=== PATIENT | female | born 1985 | race Caucasian/White ===

== ENCOUNTER 2020-12-09 12:46 | Outpatient (CLI) | payer OTHER, SELFPAY ==
--- NOTE | 2020-12-09 12:58 | XR_ITS ---
WS: [id number] ANKLE RIGHT TECHNIQUE: 3 views of the right ankle CLINICAL INFORMATION: PIN IN RIGHT ANKLE AND JOINTS OF RIGHT FOOT COMPARISON: None. FINDINGS: Moderate diffuse soft tissue edema. Normal ankle mortise. Normal medial and lateral malleolus. No acu te fractures. Tiny ossicle or chronic tiny avulsion adjacent to the medial malleolus. This appears we ll-corticated. XR/XR ankle RT min 3V* [id number] IMPRESSION: 1. Moderate diffuse soft tissue edema. No acute fractures. 2. Tiny bony fragment adjacent to the medial malleolus likely chronic.
== END 2020-12-09 12:47 | disposition home or self-care (01) ==
LOC: RADWPI 12:57
PROVIDERS: PCP Nurse Practitioner Family; Visit Provider Nurse Practitioner Family
DX: M25.571 Pain in right ankle and joints of right foot (principal); M25.471 Effusion, right ankle; R60.0 Localized edema
CPT/HCPCS: 73610

== ENCOUNTER 2021-01-07 07:33 | Emergency (ER) | payer OTHER, SELFPAY ==
[2021-01-07 07:36] VITALS: BP 151/106; PULSE 107; RESP 18; TEMP 36.5; O2SAT 91; BMI 55.2
[2021-01-07 07:44] VITALS: BP 151/106; PULSE 91; RESP 18; O2SAT 89
--- NOTE | 2021-01-07 07:46 | XR_ITS ---
WS: [id number] Portable AP upright chest, 01/07/2021 Clinical Data: dyspnea/cough Comparison: Portable chest, 09/04/2019. Findings: No nodules, masses or effusions are seen. The heart is normal. The pulmonary vascularity is not increased. No pneumonia or pneumothorax is seen. XR/XR chest 1V portable [id number] Impression: Negative chest.
--- NOTE | 2021-01-07 07:56 | US_ITS ---
WS: [id number] RIGHT UPPER QUADRANT ULTRASOUND HISTORY: RUQ abd pain COMPARISON: 03/15/2016 Liver: 22.4 cm in length. Markedly enlarged liver is incompletely visualized due to body habitus. Sev ere hepatic steatosis and fibrosis throughout the liver. No bile duct dilatation or mass. Gallbladder: Normally distended gallbladder with no stones or wall thickening. CBD: Not visualized. Pancreas: Poorly visualized. Right kidney: 12.7 cm in length. Normal size and echogenicity. No hydronephrosis or mass. Aorta and IVC: Unremarkable abdominal aorta and IVC. No ascites. US/US gall bladder [id number] IMPRESSION: 1. Very limited evaluation of the RIGHT upper quadrant due to body habitus. 2. Marked hepatomegaly and hepatic steatosis. 3. Negative gallbladder.
--- NOTE | 2021-01-07 07:57 | W.ED.ABDPA2 ---
HPI - Abdominal Pain General: Chief Complaint: Abdominal Pain Stated Complaint: AB PAIN, COUGH, NAUSEA Time Seen by Provider: 01/07/21 07:36 History of Present Illness: HPI narrative: 35-year-old female presents emergency room with a complaint of right upper quadrant abdominal pain that is worsened by eating. She was seen earlier this week by her primary care doctor to schedule some testing she is not really able to complete it yet.. When she ate last night she had worsening right upper quadrant abdominal pain radiating into her back accompanied by acholic stools and severe nausea. She denies any hematochezia or melena denies any hematemesis. Stools have become very loose when she has these episodes as well. Episodes have been increasing in intensity and frequency associated with eating. She denies dysuria urgency or frequency, she states she does have a cough but it is at her normal baseline that she relates to her history of smoking. MD elicited complaint: abdominal pain Onset (ago): week(s) Pain Consistency: intermittent Location: RUQ Severity: severe Quality: cramping Radiation: back Exacerbating factors: eating Associated Symptoms: Reports anorexia, bloating, change in bowel habits, change in stool character, GI cramping, dyspepsia, loose stools and poor appetite; Denies belching, chills, coffee ground emesis, constipation, dysuria, excessive flatus, fever(s), heartburn, hematochezia, hematuria, hematemesis, fecal incontinence, melena, nausea, syncope and vomiting Review of Systems Const: Denies: fever(s) or chills ENMT: Denies: throat pain, ear or mastoid pain, nasal discharge or nasal congestion Card: Denies: syncope Resp: Denies: dyspnea, productive cough or non-productive cough GI: Reports: bloating, GI cramping, change in bowel habits and change in stool character; Denies: nausea, vomiting, hematemesis, coffee ground emesis, heartburn, constipation, belching, excessive flatus, fecal incontinence, hematochezia or melena : Denies: dysuria or hematuria Skin/Breast: Denies: rash or pruritus Physical Exam Const: COMMON NORMALS: no acute distress GENERAL APPEARANCE: cooperative and comfortable ORIENTATION/CONSCIOUSNESS: Yes awake, Yes oriented to person, Yes oriented to place and Yes oriented to time HENMT: COMMON NORMALS: normocephalic, atraumatic and hearing grossly normal bilaterally HEAD & SCALP: normocephalic and atraumatic Neck/C-Spine: COMMON NORMALS: no JVD Resp: COMMON NORMALS: normal respiratory effort, No retractions, No use of accessory muscles and clear to auscultation bilaterally AUSCULTATION: clear to auscultation bilaterally Cardio: COMMON NORMALS: no JVD, regular rate, regular rhythm and No murmurs present (Cardio) RATE: regular rate RHYTHM: regular rhythm GI: COMMON NORMALS: Soft to palpation and No hepatosplenomegaly present AUSCULTATION: Yes normoactive bowel sounds PALPATION: Yes Soft to palpation, No Tenderness to palpation present (GI), No Guarding due to palpation present (GI) and Yes No hepatosplenomegaly present Extremity: COMMON NORMALS: normal to inspection, capillary refill normal, no clubbing, cyanosis or edema, no calf tenderness and no pedal edema Neuro: SENSORIUM/ORIENTATION: Yes oriented to person, Yes oriented to place and Yes oriented to time Skin: COMMON NORMALS: no rashes or lesions noted GENERAL SKIN EXAM: no rashes or lesions noted Course Vital Signs: Vital signs: Vital Signs Temperature 97.7 F 01/07/21 07:36 Pulse Rate 72 01/07/21 08:43 Respiratory Rate 18 01/07/21 08:43 Blood Pressure 176/106 01/07/21 08:43 Pulse Oximetry 93 01/07/21 08:49 MDM - Abdominal Pain MDM Narrative: Medical decision making narrative: Labs and imaging reviewed. There is no sign of acute cholecystitis either on imaging or the labs. We are to go ahead and discharge her home I doubt this try hydrocodone bland diet. We will set up for an outpatient HIDA scan and referral to general surgery if HIDA scan is negative she may still require an EGD. Discussed dietary suggestions with her as well return if has further problems. Lab Data: Labs: Lab Results 01/07/21 01/07/21 01/07/21 Range/Units 08:10 08:10 08:54 WBC 13.2 H (4.0-10.0) 10^3/ uL RBC 4.89 (4.1-5.3) 10^6/u L Hgb 14.6 (11.5-15.3) g/dL Hct 45.3 (37.0-47.0) % MCV 92.6 (81-99) fL MCH 29.9 (28.0-34.0) pg MCHC 32.2 (30.0-36.0) g/dL RDW 12.8 (12.1-15.1) % Plt Count 349 (130-400) 10^3/c mm MPV 9.6 (7.4-10.4) fL Neut % (Auto) 76.4 % Lymph % (Auto) 14.6 % Summers % (Auto) 3.6 % Eos % (Auto) 2.7 % Baso % (Auto) 0.5 % Neut # (Auto) 10.08 H (1.8-7.7) 10^3/u L Lymph # (Auto) 1.9 (0.8-4.8) 10^3/u L Summers # (Auto) 0.5 (0.2-0.9) 10^3/u L Eos # (Auto) 0.4 (0.0-0.8) 10^3/u L Baso # (Auto) 0.1 (0.0-0.1) 10^3/u L Nucleated RBC % (a uto) 0 % Nucleated RBCs # 0.0 /100WBC Specimen Type Arterial Sample Site Radial, left ABG pH 7.43 (7.35-7.45) ABG pCO2 38.8 (35-45) mmHg ABG pO2 72.6 L (80.0-100.0) mmH g ABG HCO3 25.7 (22-26) mmol/L ABG O2 Saturation 96.8 ABG Base Excess 1.4 (-2.0-2.0) mmol/ L Ramiro Test Pos A-a O2 Gradient 3.9 L (5-10) mmHg Hematocrit 46.6 (37-47) % Hgb O2 Saturation 89.7 L (95-100) % Carboxyhemoglobin 6.4 (0.4-20.1) %THgb Methemoglobin 0.9 (0.4-1.5) % Total Hemoglobin 15.2 (12-16) g/dL Ionized Calcium 1.1 (1.1-1.4) mmol/L O2 Delivery Device Room air FiO2 21.0 % Sow Farm Barn Technician ID glc Sodium 135 L 139.0 (136-145) mmol/L Potassium 4.1 4.1 (3.5-5.1) mmol/L Chloride 101 (98-107) mmol/L Carbon Dioxide 24 (22-29) mmol/L Anion Gap 14.1 (5-19) BUN 8 (6-20) mg/dL Creatinine 0.6 (0.5-0.9) mg/dL GFR Calculation 114.4 (90-130) mL/min Glucose 198 H 171.0 H (65-115) mg/dL Calculated Osmolal ity 284 L (285-295) mOsm/k g Calcium 8.5 (8.5-10.5) mg/dL Total Bilirubin 0.4 (0.15-1.2) mg/dL AST 30 (0-32) U/L ALT 47 H (0-33) U/L Alkaline Phosphata se 105 (35-105) IU/L Total Protein 7.2 (6.6-8.7) g/dL Albumin 4.0 (3.5-5.2) g/dL Globulin 3.2 (1.3-4.6) g/dL Lipase 40 (13-60) U/L Urine Color (Yellow) Urine Appearance (CLEAR) Urine pH (5-7) Ur Specific Gravit y (1.005-1.030) Urine Protein (Negative) Urine Glucose (UA) (Normal) Urine Ketones (Negative) Urine Blood (Negative) Urine Nitrate (Negative) Urine Bilirubin (Negative) Urine Urobilinogen (Negative) mg/dL Ur Leukocyte Estephania ase (Negative) 01/07/21 Range/Units 09:00 WBC (4.0-10.0) 10^3/ uL RBC (4.1-5.3) 10^6/u L Hgb (11.5-15.3) g/dL Hct (37.0-47.0) % MCV (81-99) fL MCH (28.0-34.0) pg MCHC (30.0-36.0) g/dL RDW (12.1-15.1) % Plt Count (130-400) 10^3/c mm MPV (7.4-10.4) fL Neut % (Auto) % Lymph % (Auto) % Summers % (Auto) % Eos % (Auto) % Baso % (Auto) % Neut # (Auto) (1.8-7.7) 10^3/u L Lymph # (Auto) (0.8-4.8) 10^3/u L Summers # (Auto) (0.2-0.9) 10^3/u L Eos # (Auto) (0.0-0.8) 10^3/u L Baso # (Auto) (0.0-0.1) 10^3/u L Nucleated RBC % (a uto) % Nucleated RBCs # /100WBC Specimen Type Sample Site ABG pH (7.35-7.45) ABG pCO2 (35-45) mmHg ABG pO2 (80.0-100.0) mmH g ABG HCO3 (22-26) mmol/L ABG O2 Saturation ABG Base Excess (-2.0-2.0) mmol/ L Ramiro Test A-a O2 Gradient (5-10) mmHg Hematocrit (37-47) % Hgb O2 Saturation (95-100) % Carboxyhemoglobin (0.4-20.1) %THgb Methemoglobin (0.4-1.5) % Total Hemoglobin (12-16) g/dL Ionized Calcium (1.1-1.4) mmol/L O2 Delivery Device FiO2 % Sow [employer] Technician ID Sodium (136-145) mmol/L Potassium (3.5-5.1) mmol/L Chloride (98-107) mmol/L Carbon Dioxide (22-29) mmol/L Anion Gap (5-19) BUN (6-20) mg/dL Creatinine (0.5-0.9) mg/dL GFR Calculation (90-130) mL/min Glucose (65-115) mg/dL Calculated Osmolal ity (285-295) mOsm/k g Calcium (8.5-10.5) mg/dL Total Bilirubin (0.15-1.2) mg/dL AST (0-32) U/L ALT (0-33) U/L Alkaline Phosphata se (35-105) IU/L Total Protein (6.6-8.7) g/dL Albumin (3.5-5.2) g/dL Globulin (1.3-4.6) g/dL Lipase (13-60) U/L Urine Color Straw (Yellow) Urine Appearance Clear (CLEAR) Urine pH 5 (5-7) Ur Specific Gravit y 1.010 (1.005-1.030) Urine Protein Neg (Negative) Urine Glucose (UA) Norm (Normal) Urine Ketones Negative (Negative) Urine Blood Neg (Negative) Urine Nitrate Negative (Negative) Urine Bilirubin Neg (Negative) Urine Urobilinogen Norm (Negative) mg/dL Ur Leukocyte Estephania ase Negative (Negative) Discharge Plan Discharge Patient Disposition: Home Clinical Impression: Biliary colic Condition: Stable Prescriptions: New hydrocodone-acetaminophen 5-325 mg tablet 1 tab PO Q6H PRN (Reason: pain) Qty: 15 RF: 0 Zofran 4 mg tablet 4 mg PO Q6H PRN (Reason: nausea and vomiting) Qty: 20 RF: 0 No Action cyclobenzaprine 10 mg tablet 10 mg PO BEDTIME PRN (Reason: Spasms) RF: 0 metformin 500 mg tablet 500 mg PO BID RF: 0 Advair Diskus 250-50 mcg/dose blister with device 1 ea inhalation BID PRN (Reason: Shortness Of Breath) RF: 0 albuterol sulfate 2.5 mg /3 mL (0.083 %) solution for nebulization 2.5 mg inhalation Q6H PRN (Reason: Shortness Of Breath) RF: 0 cetirizine 10 mg Tablet 10 mg PO DAILY@07 RF: 0 ondansetron HCl 4 mg tablet 4 mg PO Q6H PRN (Reason: Nausea) RF: 0 sertraline 100 mg tablet 100 mg PO DAILY@07 RF: 0 ciprofloxacin HCl 500 mg tablet 500 mg PO BID RF: 0 pantoprazole 40 mg tablet,delayed release (DR/EC) 40 mg PO DAILY@07 RF: 0 albuterol sulfate 90 mcg/actuation HFA aerosol inhaler 2 puff INHALATION Q4H PRN (Reason: Shortness Of Breath) RF: 0 hydroxyzine HCl 10 mg tablet 10 - 20 mg PO QID PRN (Reason: Anxiety) RF: 0 lisinopril 2.5 mg tablet 2.5 mg PO DAILY@07 RF: 0 Fish Oil 1,000 mg (120 mg-180 mg) Capsule 1 cap PO DAILY@07 RF: 0 Discharge Orders: Discharge ED (Routine); Ordered 01/07/21 Ordered By: Naseem Campoverde Referrals: Florence Gray FNP [Primary Care Provider] - Patient Instructions: Biliary Colic (ED), Opioid Safety Coding Level of Care Code ED Tipple Repairer for Chg Fwd Exam Comprehensive
[2021-01-07 08:20] LABS: Basophils # 0.1 10^3/uL (0.0-0.1); Basophils % 0.5 %; Eosinophils # 0.4 10^3/uL (0.0-0.8); Eosinophils % 2.7 %; Hematocrit 45.3 % (37.0-47.0); Hemoglobin 14.6 g/dL (11.5-15.3); Lymphocytes # 1.9 10^3/uL (0.8-4.8); Lymphocytes % 14.6 %; Mean Corpuscular HGB Conc 32.2 g/dL (30.0-36.0); Mean Corpuscular Hemoglobin 29.9 pg (28.0-34.0); Mean Corpuscular Volume 92.6 fL (81-99); Mean Platelet Volume 9.6 fL (7.4-10.4); Monocytes # 0.5 10^3/uL (0.2-0.9); Monocytes % 3.6 %; Neutrophils # 10.08 10^3/uL (1.8-7.7); Neutrophils % 76.4 %; Nucleated Red Blood Cells % 0 %; Platelet Count 349 10^3/cmm (130-400); Red Blood Count 4.89 10^6/uL (4.1-5.3); Red Cell Distribution Width 12.8 % (12.1-15.1); White Blood Count 13.2 10^3/uL (4.0-10.0)
[2021-01-07 08:35] LABS: Alanine Aminotransferase 47 U/L (0-33); Alkaline Phosphatase 105 IU/L (35-105); Anion Gap 14.1 (5-19); Aspartate Amino Transferase 30 U/L (0-32); Blood Urea Nitrogen 8 mg/dL (6-20); Calcium 8.5 mg/dL (8.5-10.5); Carbon Dioxide 24 mmol/L (22-29); Chloride 101 mmol/L (98-107); Globulin 3.2 g/dL (1.3-4.6); Glomerular Filtration Rate 114.4 mL/min (90-130); Glucose 198 mg/dL (65-115); Lipase 40 U/L (13-60); Osmolality Calculated 284 mOsm/kg (285-295); Potassium 4.1 mmol/L (3.5-5.1); Sodium 135 mmol/L (136-145); Total Bilirubin 0.4 mg/dL (0.15-1.2); Total Protein 7.2 g/dL (6.6-8.7)
--- NOTE | 2021-01-07 08:42 | CT_ITS ---
WS: [id number] CT ABDOMEN AND PELVIS WITH CONTRAST HISTORY: abd pain, RIGHT lower quadrant and chest pain. TECHNIQUE: Imaging performed of the abdomen and pelvis with IV contrast. Single phase imaging of the abdomen. Coronal and sagittal reformats are submitted. All CT scans at use at least one of these dose optimization techniques: automated exposure control; mA and/or kV adjustment per patient size (includes targeted exams where dose is matched to clinical indication); or iterativ e reconstruction. IV CONTRAST: Omnipaque 300; 95 mL IV. Oral contrast: No DLP: 1999.08 mGy.cm COMPARISON: 09/04/2019 Lower thorax: Lung bases are clear. Heart is normal size. No hiatal hernia. Liver/biliary system: Marked hepatomegaly and hepatic steatosis. Severe low attenuation throughout th e liver. No focal mass identified. Normal portal vein and bile ducts. Gallbladder: Normal. No gallstones or wall thickening. No pericholecystic fluid. Pancreas: Normal. Spleen: Normal. Adrenal glands: Normal. Right kidney: Normal. Left kidney: Normal. Aorta: Normal. Lymphadenopathy: None. Free fluid: No free fluid within the abdomen or pelvis. There is soft tissue anasarca along the later al abdominal wall musculature. GI tract: Prior appendectomy. No GI tract obstruction. No mucosal thickening. Abdominal wall: Unremarkable abdominal wall. No hernia. Pelvis: Prior hysterectomy. RIGHT ovary is still present and small caliber. Bones: Advanced degenerative disc disease at L4-5 with bilateral pars defects at L4. Additional pars defects at L3. Bilateral transverse process fractures at L1 versus unfused apophyses. CT/CT abdomen pelvis w con* [id number] IMPRESSION: 1. Severe hepatomegaly and hepatic steatosis. 2. Prior appendectomy and hysterectomy. 3. No GI tract obstruction. No acute abdominal process. 4. Bilateral pars defects at L4 and L3
[2021-01-07 08:43] VITALS: BP 176/106; PULSE 72; RESP 18; O2SAT 92
[2021-01-07 08:49] VITALS: O2SAT 93
[2021-01-07 09:04] LABS: ABG PCO2 38.8 mmHg (35-45); ABG PH Result 7.43 (7.35-7.45); Alveolar-Arterial Oxygen Gradi 3.9 mmHg (5-10); Arterial Blood Gas Hematocrit 46.6 % (37-47); Base Excess ABG 1.4 mmol/L (-2.0-2.0); Blood Gas Allen Test Pos; Blood Gas Operator Identificat glc; Blood Gas Sample Site Radial, left; Blood Gas Sample Type Arterial; Carboxyhemoglobin 6.4 %THgb (0.4-20.1); HCO3 ABG 25.7 mmol/L (22-26); HGB O2 Sat 89.7 % (95-100); Ionized Calcium Level - ABG 1.1 mmol/L (1.1-1.4); Methemoglobin 0.9 % (0.4-1.5); Oxygen Device ROOM AIR; Oxygen Saturation ABG 96.8; PO2 ABG 72.6 mmHg (80.0-100.0); Potassium Level - ABG 4.1 mmol/L (3.5-5.0); Total Hemoglobin 15.2 g/dL (12-16)
[2021-01-07 09:06] LABS: Add Urine Microscopic? NO
[2021-01-07] MEDS: iohexol 300 mg/mL 100 mL Btl IV (09:15)
[2021-01-07 09:16] LABS: Bilirubin Urine Neg (Negative); Blood Urine Neg (Negative); Glucose Urine UA Norm (Normal); Ketones Urine Negative (Negative); Leukocyte Esterase Urine Negative (Negative); Nitrate Urine Negative (Negative); Protein Urine Neg (Negative); Urine Appearance Clear (CLEAR); Urine Color Straw (Yellow); Urobilinogen Urine Norm (Negative); pH Urine 5 (5-7)
[2021-01-07 10:00] VITALS: BP 138/84; PULSE 78; RESP 15; O2SAT 96
--- NOTE | 2021-01-07 15:08 | DCPLANNER ---
seed corn production manager had message to schedule an out patient HIDA scan and a referral to general surgery. seed corn production manager emailed patients information to both Geeta and Karina at [facility] General Surgery. Patients information will be printed and reviewed. Clinic will call patient with appointment information. seed corn production manager faxed signed order to centralized scheduling, will call for appointment information.
--- NOTE | 2021-01-11 07:44 | DCPLANNER ---
Patient has a follow up appointment scheduled for Monday, January 11, 2021 at 3;[address] Kirkpatrick at [facility] General Surgery. Clinic will call patient with appointment information.
--- NOTE | 2021-01-20 09:15 | DCPLANNER ---
Addendum entered by Kathleen Condon 02/23/22 12:25: Patient had a follow up appointment scheduled for 02[facility]06.22 with [facility] - patient did attend appointment. Original Note: Patient had a follow up appointment scheduled for 01.18.21 for a HIDA Scan - patient did attend appointment. Patient had a follow up appointment scheduled for 01.11.[address] Kirkpatrick at [facility] General Surgery - patient did attend appointment.
== END 2021-01-07 10:01 | disposition home or self-care (01) ==
PROVIDERS: Emergency Provider Family Medicine; PCP Nurse Practitioner Family
DX: K80.50 Calculus of bile duct without cholangitis or cholecystitis without obstruction (principal)
CPT/HCPCS: 36415; 36600; 71045; 74177; 76705; 80051; 80053; 81003; 82330; 82805; 83690; 85025; 87040; 99283; Q9967

== ENCOUNTER 2021-01-18 07:31 | Outpatient (CLI) | payer OTHER, SELFPAY ==
--- NOTE | 2021-01-18 07:37 | NM_ITS ---
WS: [id number] NUCLEAR MEDICINE HIDA SCAN CLINICAL INFORMATION: BILIARY COLIC TECHNIQUE: Following intravenous administration of 7.9 mCi of technetium 99m mebrofenin, images of th e abdomen were obtained over the course of 60 minutes. Next, gallbladder ejection fraction was determ ined by obtaining preprandial and one-hour postprandial images of the gallbladder following oral joey stion of Ensure. FINDINGS: Hepatomegaly. Hepatic uptake at 5 minutes. Gallbladder is visualized by 15 minutes. No evidence of ac lea cholecystitis. Normal common bile duct and small bowel activity. No evidence of choledocholithias is. Gallbladder ejection fraction 77% within normal limits. No evidence of chronic cholecystitis. NM/NM hepatobiliary w phar* [id number] IMPRESSION: 1. No evidence of acute or chronic cholecystitis. 2. Gallbladder ejection fraction 77% within normal limits.
== END 2021-01-18 07:32 | disposition home or self-care (01) ==
LOC: RAD 07:35
PROVIDERS: PCP Nurse Practitioner Family; Visit Provider Family Medicine
DX: K80.50 Calculus of bile duct without cholangitis or cholecystitis without obstruction (principal)
CPT/HCPCS: 78227; A9537

== ENCOUNTER → 2021-01-26 16:02 | Outpatient (BNVA) | payer OTHER, SELFPAY | PROVIDERS: PCP Nurse Practitioner Family; Visit Provider Family Medicine | DX: Z20.828 Contact with and (suspected) exposure to other viral communicable diseases (principal) | CPT/HCPCS: 87635 ==

== ENCOUNTER 2021-02-01 10:27 | Outpatient (CLI) | payer OTHER, SELFPAY ==
--- NOTE | 2021-02-01 13:30 | PFTS_ITS ---
Date of Study:02/01/21 Date of Dictation: 02/01/2021 MECHANICS: Postbronchodilator forced vital capacity (FVC) is normal. Postbronchodilator forced expiratory volume in one second (FEV1) is normal. FEV1/FVC is normal. There is significant response to bronchodilators. FLOW VOLUME LOOP: Normal . LUNG VOLUMES: Not measured DIFFUSING CAPACITY FOR CARBON MONOXIDE: Not measured . INTERPRETATION: The spirometry is normal. There is significant response to bronchodilators. Please correlate clinically. MTDD
== END 2021-02-01 10:28 | disposition home or self-care (01) ==
LOC: RT 10:32
PROVIDERS: PCP Nurse Practitioner Family; Visit Provider Family Medicine
DX: R06.2 Wheezing (principal)
CPT/HCPCS: 94060; J7611

== ENCOUNTER → 2021-02-09 11:53 | Outpatient (BNVA) | payer OTHER, SELFPAY | PROVIDERS: PCP Nurse Practitioner Family; Visit Provider Surgery | DX: K21.9 Gastro-esophageal reflux disease without esophagitis (principal); R10.11 Right upper quadrant pain | CPT/HCPCS: 87635 ==

== ENCOUNTER 2021-02-14 12:12 | Day surgery (SDC) | payer OTHER, SELFPAY ==
[2021-02-11 14:56] VITALS: BMI 54.8
[2021-02-14] VITALS (11 sets, daily range): BP systolic 126–159; BP diastolic 78–89; PULSE 59–84; RESP 12–18; TEMP 36.4–36.6; O2SAT 90–97
[2021-02-14 12:58] LABS: Glucose Point of Care 158 mg/dL (70-110)
--- NOTE | 2021-02-14 13:56 | P.ANESASSM_ITS ---
Pre-Anesthetic Assessment Pre-Anesthetic Assessment: Height/Weight: Height 1.68 m Weight 154.221 kg Temp Pulse Resp BP Pulse Ox 97.5 F L 66 18 159/89 97 02/14/21 12:42 02/14/21 12:42 02/14/21 12:42 02/14/21 12:42 02/14/21 12:42 Preop Diagnosis: Chronic cholecystitis, GERD Proposed Procedure: Operation Date: 02/14/21 13:55 Proposed Procedures p EGD [id number] K21.9 R10.11(Not Applicable) - Reymundo Kirkpatrick MD s Laparoscopic Cholecystectomy(Not Applicable) - Reymundo Kirkpatrick MD Was Beta Edmond taken within 24 hours: N/A Was Clonidine taken within 24 hours: N/A Last intake: Intake Last Liquid Date 02/13/21 Last Solid Date 02/13/21 Social: Social History: Tobacco and No alcohol Exam: Pre-Anes Outpt Exam: alert, oriented x 3, clear to auscultation bilaterally and regular rate & rhythm Airway: Submandibular: WNL Cervical ROM: WNL MP: 1 Pulmonary: Pulmonary: Asthma CV/HEM: CV/HEM: HTN : : None reported Hepatic: Hepatic: None reported GI: GI: GERD Metabolic: Metabolic: DM and Morbid obesity Musc/skel: Musc/skel: None reported Neuropsych: Neuropsych: Depression Anesthetic Plan: ASA status: 3 Anesthesia: General PFSH Anesthesia PFSH: Medical History (Updated 01/28/21 @ 10:45 by Reymundo Kirkpatrick MD) Depression Diabetes GERD (gastroesophageal reflux disease) Seasonal allergies Surgical History History of esophagogastroduodenoscopy (EGD) History of laparoscopic [place]ectomy [place] [place] myringotomy with insertion of tube S/P partial hysterectomy Family History Denies family history of Anesthesia complication Bleeding disorder Data Anesthesia Other Labs: Laboratory Results - last 48 hr 02/14/21 12:53 POC Glucose 158 H Cardiac Studies: No Data to Display
--- NOTE | 2021-02-14 15:16 | W.PM.OPSUD ---
Surgery/Procedure H&P Update DATE OF PROCEDURE: February 14, 2021 DATE H&P PERFORMED: 01/28/21 H&P UPDATE INFORMATION: I have reviewed H&P completed within last 30 days, I have examined patient prior to procedure and No changes to prior documentation PREOP DIAGNOSIS: Chronic cholecystitis, GERD PLANNED PROCEDURE: Operation Date: 02/14/21 13:55 Proposed Procedures p EGD [id number] K21.9 R10.11(Not Applicable) - Reymundo Kirkpatrick MD s Laparoscopic Cholecystectomy(Not Applicable) - Reymundo Kirkpatrick MD
--- NOTE | 2021-02-14 17:44 | PM.OP ---
Operative Report Date of procedure: February 14, 2021 Pre-op Diagnosis: Chronic cholecystitis, GERD Post-op Diagnosis: 1. Normal EGD 2. Chronic cholecystitis Procedure Done: 1. Esophagogastroduodenoscopy without biopsy 2. Laparoscopic cholecystectomy Specimens removed/disposition: Gallbladder Surgeon: Reymundo Kirkpatrick Anesthesia: General Condition: stable Disposition: PACU Procedure: The patient was taken to the operating room and was intubated under general anesthesia. A bite-block was placed and a gastroscope was introduced and advanced up to the second part of duodenum and slowly withdrawn. Duodenum second portion: Normal Duodenal bulb: Normal Stomach Fundus: Normal body: Normal Antrum: Normal Pylorus: Normal Esophagus GE junction: Normal at 40 cm Rest of esophagus: Normal After the antibiotic had been administered, the abdomen was prepped and draped in a sterile manner. Using a #15 blade, a 1 centimeter infraumbilical curvilinear incision was made and using an open Tejal technique the peritoneal cavity was entered. A 10 millimeter port was placed and 15 millimeters of pneumoperitoneum was created. A 10 millimeter, 30 degrees scope was then introduced. Three 5 millimeter ports were placed in the epigastric, midclavicular and the anterior axillary line two fingerbreadths below the costal margin on the right side under the direct visualization. Ratcheted forceps were introduced into the lateral most port and was used to retract the fundus of the gallbladder cephalad and using forceps the infundibulum of the gallbladder was retracted laterally. Using L-hook cautery the peritoneum overlying the Calot's triangle was opened medially and laterally until the cystic duct and the cystic artery were skeletonized. Dissection was carried along the body of the gallbladder and after ensuring critical view of safety, 4 clips applied on the cystic duct and 3 clips applied on the cystic artery and cut leaving, 3 clips on the remaining portion of the duct and 2 clips on the remaining portion of the artery. The rest of the gallbladder was dissected off the liver using L-hook cautery. There was no bleeding or bile leaking noted from the gallbladder fossa and the clips appeared to be in place. An EndoCatch bag was introduced to remove the gallbladder. All the ports were removed under direct visualization and there was no bleeding noted from the port sites. The fascia of the umbilicus was closed using [id number] 0 Vicryl sutures and the subcutaneous tissue was approximated using 3-0 Vicryl sutures. The skin at all four ports were closed using 4-0 Monocryl and Dermabond. A total of 10 millimeters of 0.5% Marcaine was infiltrated around the port sites. The patient was stable throughout the procedure.
--- NOTE | 2021-02-14 17:54 | P.PCN_ITS ---
PACU note PACU note: VSS, Good respiratory effort, report to CATERPILLAR TRACTOR OPERATOR Post-Anesthesia Exam: awake
--- NOTE | 2021-02-14 17:54 | PM.PACU ---
PACU note PACU note: VSS, Good respiratory effort, report to INFUSION PHARMACIST Post-Anesthesia Exam: awake
[2021-02-14] MEDS: ondansetron 2 mg/ML SDV 2 mL 4 MG IVP ×4 (17:56→19:28)
[2021-02-14] MEDS: sodium chloride 0.9% 1,000 ML 30 ML IV (18:20)
--- NOTE | 2021-02-14 18:21 | ANE.PACU2 ---
Inpatient post-anesthesia follow up: Airway intact: Yes Vital signs: Temperature 97.8 F Pulse Rate 71 Respiratory Rate 14 Blood Pressure 128/82 Pulse Oximetry 94 Oxygen Delivery Me thod Room Air Oxygen Flow Rate 8 Fraction of Inspir ed Oxygen Hydration adequate: Yes Nausea and vomiting: Yes Pain level: 3 Mental status: Baseline
[2021-02-14] MEDS: morphine 4 mg/mL SDV 1 mL IVP ×2 (18:38→18:43)
[2021-02-14] MEDS: HYDROcodone-acetaminophen 5-325 mg Tablet 1 TAB PO (19:12)
== END 2021-02-14 19:52 | disposition home or self-care (01) ==
PROVIDERS: PCP Nurse Practitioner Family; Visit Provider Surgery
PROC: 0DJ08ZZ Inspection of Upper Intestinal Tract, Via Natural or Artificial Opening Endoscopic (ICD-10-PCS; CPT 43235; principal; 2021-02-14 13:45)
PROC: 0FT44ZZ Resection of Gallbladder, Percutaneous Endoscopic Approach (ICD-10-PCS; CPT 47562; 2021-02-14 13:45)
DX: K81.1 Chronic cholecystitis (principal); K21.9 Gastro-esophageal reflux disease without esophagitis; I10 Essential (primary) hypertension; E11.9 Type 2 diabetes mellitus without complications; E66.01 Morbid (severe) obesity due to excess calories; Z68.43 Body mass index [BMI] 50.0-59.9, adult; F32.9 Major depressive disorder, single episode, unspecified
CPT/HCPCS: 43235; 47562; 36416; 82962; 88304; 96374; 96375; J0330; J0690; J2270; J2405; J2704; J2710; J3010; J3490; J7030

== ENCOUNTER 2021-03-18 13:38 | Outpatient (CLI) | payer OTHER, SELFPAY ==
--- NOTE | 2021-03-18 13:51 | XR_ITS ---
WS: [id number] Right wrist, 3 views, 03/18/2021 Clinical Data: TRIGGER FINGER OF THUMB/R WRIST PAIN Comparison: None. Findings: No fractures or dislocations are seen. The carpal bones are intact. There is no soft tissue swelling. The distal radius and ulna are not remarkable. XR/XR wrist RT min 3V* [id number] Impression: Negative right wrist.
== END 2021-03-18 13:39 | disposition home or self-care (01) ==
LOC: RAD 13:44
PROVIDERS: PCP Nurse Practitioner Family; Visit Provider Nurse Practitioner Family
DX: M25.531 Pain in right wrist (principal); M65.311 Trigger thumb, right thumb
CPT/HCPCS: 73110

== ENCOUNTER 2021-04-05 14:52 | Outpatient (CLI) | payer OTHER, SELFPAY | END 2021-04-05 14:53 | disposition home or self-care (01) | LOC: SPT 14:53 | PROVIDERS: PCP Nurse Practitioner Family; Visit Provider Orthopaedic Surgery | DX: Z46.89 Encounter for fitting and adjustment of other specified devices (principal); M65.4 Radial styloid tenosynovitis [de Quervain] | CPT/HCPCS: L3809 ==

== ENCOUNTER 2021-06-08 08:37 | Outpatient (CLI) | payer OTHER, SELFPAY ==
--- NOTE | 2021-06-08 08:42 | CT_ITS ---
WS: [id number] CT CHEST TECHNIQUE: Contrast enhanced CT of the chest with coronal and sagittal reformatted images. CLINICAL INFORMATION: ABNORMAL RADIOLOGIC FINDINGS OF LUNG FIELD COMPARISON: CTA 10 31,019 DLP: 1163.[address] scans at [facility] use at least one of these dose optimization techniques: automat ed exposure control; mA and/or kV adjustment per patient size (includes targeted exams where dose is matched to clinical indication); or iterative reconstruction. FINDINGS: Both lungs are well aerated. No acute pulmonary infiltrates. No focal pneumonia or pleural fluid. No suspicious pulmonary parenchymal opacities. No mediastinal or hilar lymphadenopathy. Normal caliber thoracic aorta. Proximal main pulmonary arter ies are normal. No axillary lymphadenopathy. Hepatomegaly. Diffuse fatty infiltration of the liver. Cholecystectomy clips. Adrenal glands are norm al. CT/CT chest w con* [id number] IMPRESSION: 1. Both lungs are well aerated. No suspicious pulmonary parenchymal opacities. 2. No focal pneumonia or pleural fluid. 3. No mediastinal or hilar lymphadenopathy. 4. Hepatomegaly with diffuse fatty infiltration. 5. Cholecystectomy clips.
[2021-06-08] MEDS: iohexol 300 mg/mL 100 mL Btl IV (08:59)
== END 2021-06-08 08:38 | disposition home or self-care (01) ==
PROVIDERS: PCP Nurse Practitioner Family; Visit Provider Nurse Practitioner Family
DX: R91.8 Other nonspecific abnormal finding of lung field (principal); Z90.49 Acquired absence of other specified parts of digestive tract; R16.0 Hepatomegaly, not elsewhere classified; K76.0 Fatty (change of) liver, not elsewhere classified
CPT/HCPCS: 71260; Q9967

== ENCOUNTER 2021-06-16 11:22 | Outpatient (CLI) | payer OTHER, SELFPAY ==
--- NOTE | 2021-06-16 11:29 | XR_ITS ---
WS: [id number] Lumbar spine, 3 views, 06/16/2021 Clinical Data: LOW BACK PAIN/SCIATICA LEFT SIDE Comparison: None. Findings: No compression fractures or subluxation is seen. There is degenerative disc narrowing at L4-L5. Anter ior osteoarthritic spurring is present from L1 through L5. The transverse processes and SI joints are normal. There are clips in the right upper quadrant from a cholecystectomy. XR/XR lumbar spine 2-3V* [id number] Impression: 1. Degenerative disc narrowing at L4-L5. 2. Mild osteoarthritis of L1-L5.
== END 2021-06-16 11:23 | disposition home or self-care (01) ==
PROVIDERS: PCP Nurse Practitioner Family; Visit Provider Nurse Practitioner Family
DX: M54.5 Low back pain (principal); M54.32 Sciatica, left side; M47.816 Spondylosis without myelopathy or radiculopathy, lumbar region
CPT/HCPCS: 72100

== ENCOUNTER 2021-12-26 11:37 | Outpatient (CLI) | payer OTHER, SELFPAY ==
--- NOTE | 2021-12-26 11:54 | XR_ITS ---
WS: [id number] Exam: XR KUB [id number] Date/Time of Exam: 12/26/2021 11:54 AM Reason For Exam: ABD PAIN Comparison 10/17/2016. No bowel obstruction or free air. Signs of prior cholecystectomy. No sign of organ enlargement. Bony structures are intact. Multiple pelvic calcifications most likely phleboliths. XR/XR KUB [id number] IMPRESSION: 1. No acute abdominal process noted.
== END 2021-12-26 11:38 | disposition home or self-care (01) ==
PROVIDERS: PCP Nurse Practitioner Family; Visit Provider Nurse Practitioner Family
DX: R10.9 Unspecified abdominal pain (principal)
CPT/HCPCS: 74018

== ENCOUNTER 2021-12-29 07:56 | Outpatient (CLI) | payer OTHER, SELFPAY ==
--- NOTE | 2021-12-29 07:59 | CT_ITS ---
WS: [id number] CT ABDOMEN AND PELVIS NONCONTRAST HISTORY: RIGHT flank pain and RIGHT lower quadrant pain. TECHNIQUE: Imaging performed through the abdomen and pelvis. Coronal and sagittal reformats are submi tted. All CT scans at [facility] use at least one of these dose optimization techniques: auto mated exposure control; mA and/or kV adjustment per patient size (includes targeted exams where dose is matched to clinical indication); or iterative reconstruction. DLP: 2108.96 mGy.cm COMPARISON: 01/07/2021 Lower thorax: Lung bases are clear. Visualized heart is normal. No hiatal hernia. Liver: Marked hepatomegaly and severe low attenuation from hepatic steatosis. No bile duct dilatation is evident. Gallbladder: Prior cholecystectomy. Pancreas: Normal size and attenuation. Normal pancreatic duct. No pancreatitis or mass. Spleen: Normal. Adrenal glands: Normal. No mass. Right kidney: Normal size kidney with no mass or hydronephrosis. Left kidney: Normal size kidney with no mass or hydronephrosis. Aorta: Minimal atherosclerotic plaque. No free fluid, intraperitoneal air or significant lymphadenopathy. GI tract: Prior appendectomy. Nondistended stomach as no oral contrast was provided. No small bowel o bstruction. No colonic obstruction. Abdominal wall: Negative. No hernia. Pelvis: Status post hysterectomy. Urinary bladder is nondistended and is being displaced anteriorly a nd compressed by a cystic mass in the central pelvis with adjacent soft tissue which is probably ovar edith tissue. Mass measures 7.7 x 7.6 x 7.3 cm. RIGHT ovary was identified on the prior study. No adjac ent inflammation or free fluid. There are several phleboliths in the pelvis. Small bilateral inguinal lymph nodes. Osseous structures: Severe degenerative disc disease at L4-5 with L4 anterolisthesis by 4 mm. Bilater al pars defects at L4. Otherwise suspicious there are probably pars defects also at the L3 level. CT/CT kidney stone [id number] IMPRESSION: 1. No renal mass or calcification. No ureteral obstruction. 2. Status post appendectomy and hysterectomy. 3. Status post cholecystectomy. 4. New soft tissue mass in the central pelvis of decreased attenuation. Probab ly associated with the RIGHT ovary. Mass measures 7.7 x 7.6 cm and extends over a length of 7.3 cm. This mass was not present on 01/07/2021. Differential includ es ovarian cystic mass, benign or malignant. Ovarian torsion within the differe ntial but thought less likely as there is no adjacent free fluid or inflammatio n or severe pain. Recommend follow-up transvaginal pelvic ultrasound to further evaluate. 5. Marked hepatomegaly and hepatic steatosis.
== END 2021-12-29 07:57 | disposition home or self-care (01) ==
LOC: RAD 07:57
PROVIDERS: PCP Nurse Practitioner Family; Visit Provider Nurse Practitioner Family
DX: Z90.49 Acquired absence of other specified parts of digestive tract; N20.0 Calculus of kidney; Q42.8 Congenital absence, atresia and stenosis of other parts of large intestine; Z90.710 Acquired absence of both cervix and uterus; R16.0 Hepatomegaly, not elsewhere classified; K76.0 Fatty (change of) liver, not elsewhere classified
CPT/HCPCS: 74176

== ENCOUNTER 2022-01-19 09:31 | Inpatient (IN) | payer OTHER, SELFPAY ==
[2022-01-19 09:39] VITALS: BP 146/92; PULSE 74; RESP 16; TEMP 36.3; O2SAT 100; BMI 51.6
--- NOTE | 2022-01-19 09:43 | USR_ITS ---
PROCEDURE INFORMATION: Exam: US Pelvis, Transvaginal Exam date and time: 01/19/2022 10:34 AM Age: 36 years old Clinical indication: Pelvic pain; Prior surgery; Surgery date: 6+ months; Surgery type: Hysterectomy; Additional info: Suspected twisted ovary, per Dr. Bhakta TECHNIQUE: Imaging protocol: Real-time transvaginal pelvic ultrasound with image documentation. Transvaginal imaging was used for better evaluation of the endometrium, adnexa, and/or cervix. COMPARISON: CT kidney stone [id number] 12/29/2021 8:41 AM FINDINGS: Uterus: Status post hysterectomy. Right ovary/adnexa: Normal ovarian blood flow. There is a complex septated cyst 7.5 cm x 8.8 cm x 8.4 cm. A 2nd complex septated cyst 11 mm x 11.7 mm x 9.5 mm. The right ovary measures 8.2 cm x 10.1 cm x 12.5 cm. Left ovary/adnexa: Is not visualized. Intraperitoneal space: Moderate volume free fluid collection is seen in the right adnexa are oval US/US transvaginal [id number] IMPRESSION: 1. Complex septated cyst right ovary. 2. Small septated cyst right ovary. 3. Normal vascular flow right ovary. 4. Status post hysterectomy. 5. Left ovary is not visible. 6. Moderate volume free fluid collection right adnexa
--- NOTE | 2022-01-19 09:50 | W.ED.GENADLT ---
HPI - General Adult General: Chief complaint: Abdominal Pain Stated complaint: ABD pain; pos ovary twist Time Seen by Provider: 01/19/22 09:42 History of Present Illness: Patient complains about the right lower quadrant pain since yesterday. Patient says she has a history of a mass possible ovarian cyst there. Patient was seen by Dr. Rowe in our office today and sent here for further evaluation. Patient said pain got really bad yesterday evening she went to the ER in [place] they did a CT to look for stone did not see a stone she said that the mass was still present about 9 cm x 9 cm. Patient denies any hematuria, vaginal discharge, nausea vomiting, and fever. Associated symptoms: Deny chest pain, dyspnea, headache(s), nausea, rash or vomiting Review of Systems Const: Denies: fever(s), chills or body aches Eyes: Denies: eye discomfort ENMT: Denies: throat pain Card: Denies: chest pain Resp: Denies: dyspnea GI: Denies: abdominal pain, nausea or vomiting : Reports: other (Right lower pelvic area pain) Skin/Breast: Denies: rash Neuro: Denies: headache(s) Psych: Denies: depression or suicidal ideation PFSH ED PFSH: Medical History Depression Diabetes GERD (gastroesophageal reflux disease) Seasonal allergies Surgical History History of esophagogastroduodenoscopy (EGD) (02/14/21) History of laparoscopic [place] [facility] [place] my[place]otomy with insertion of tube S/P partial hysterectomy Status post laparoscopic cholecystectomy (02/14/21) Family History (Updated 01/19/22 @ 08:56 by Lizzie Longoria LPN) Father CAD (coronary artery disease) Diabetes Hyperlipidemia Hypertension Denies family history of Clotting disorder Chronic kidney disease (CKD) Anesthesia complication Bleeding disorder Cancer Thyroid disease Stroke Physical Exam Const: COMMON NORMALS: no acute distress, patient oriented x3 and alert HENMT: COMMON NORMALS: normocephalic and external ears normal HEAD & SCALP: normocephalic EXTERNAL EAR: Yes external ears normal Eye: COMMON NORMALS: EOMs intact bilaterally Neck/C-Spine: COMMON NORMALS: no JVD Resp: COMMON NORMALS: normal respiratory effort and No use of accessory muscles Cardio: COMMON NORMALS: no JVD GI: INSPECTION: Yes normal to inspection : OTHER: Tenderness right lower pelvis Extremity: COMMON NORMALS: normal to inspection and full ROM Neuro: COMMON NORMALS: patient oriented x3 SENSORIUM/ORIENTATION: Yes alert Psych: COMMON NORMALS: mental status grossly normal Skin: COMMON NORMALS: no rashes or lesions noted GENERAL SKIN EXAM: no rashes or lesions noted Course Vital Signs: Vital signs: Vital Signs Temperature 97.3 F L 01/19/22 09:39 Pulse Rate 74 01/19/22 09:39 Respiratory Rate 16 01/19/22 09:39 Blood Pressure 146/92 01/19/22 09:39 Pulse Oximetry 100 01/19/22 09:39 [facility] - General Adult Medical Decision Making Laboratories and radiology studies were evaluated. Patient has complex septated cyst on the right ovary also has leukocytosis. Patient pain is not been able to control to morphine. I spoke with Dr. Cadena and Dr. Kuo and patient will be admitted to the hospital via Dr. Cadena he has to go ahead and treat for PID with antibiotic coverage and pain control. Lab Data : 01/19/22 10:10 01/19/22 10:10 Radiology Impressions Transvaginal US 01/19/22 09:43 IMPRESSION: 1. Complex septated cyst right ovary. 2. Small septated cyst right ovary. 3. Normal vascular flow right ovary. 4. Status post hysterectomy. 5. Left ovary is not visible. 6. Moderate volume free fluid collection right adnexa Laboratory Results WBC 21.7 10^3/uL (4.0-10.0) H 01/19/22 10:10 RBC 4.55 10^6/uL (4.1-5.3) 01/19/22 10:10 Hgb 13.9 g/dL (11.5-15.3) 01/19/22 10:10 Hct 42.0 % (37.0-47.0) 01/19/22 10:10 MCV 92.3 fl (81-99) 01/19/22 10:10 MCH 30.5 pg (28.0-34.0) 01/19/22 10:10 MCHC 33.1 g/dL (30.0-36.0) 01/19/22 10:10 RDW 13.1 % (12.1-15.1) 01/19/22 10:10 Plt Count 379 10^3/cmm (130-400) 01/19/22 10:10 MPV 9.8 fL (7.4-10.4) 01/19/22 10:10 Neut % (Auto) 78.2 % 01/19/22 10:10 Lymph % (Auto) 14.3 % 01/19/22 10:10 Fergus % (Auto) 4.1 % 01/19/22 10:10 Eos % (Auto) 1.3 % 01/19/22 10:10 Baso % (Auto) 0.5 % 01/19/22 10:10 Neut # (Auto) 16.95 10^3/uL (1.8-7.7) H 01/19/22 10:10 Lymph # (Auto) 3.1 10^3/uL (0.8-4.8) 01/19/22 10:10 Fergus # (Auto) 0.9 10^3/uL (0.2-0.9) 01/19/22 10:10 Eos # (Auto) 0.3 10^3/uL (0.0-0.8) 01/19/22 10:10 Baso # (Auto) 0.1 10^3/uL (0.0-0.1) 01/19/22 10:10 Nucleated RBC % (auto) 0 % 01/19/22 10:10 Nucleated RBCs # 0.0 /100WBC 01/19/22 10:10 PT 13.80 SECONDS (12.1-14.9) 01/19/22 10:10 INR 1.03 (0.8-1.2) 01/19/22 10:10 Sodium 133 mmol/L (136-145) L 01/19/22 10:10 Potassium 4.1 mmol/L (3.5-5.1) 01/19/22 10:10 Chloride 97 mmol/L (98-107) L 01/19/22 10:10 Carbon Dioxide 22 mmol/L (22-29) 01/19/22 10:10 Anion Gap 18.1 (5-19) 01/19/22 10:10 BUN 11 mg/dL (6-20) 01/19/22 10:10 Creatinine 0.6 mg/dL (0.5-0.9) 01/19/22 10:10 GFR Calculation 113.8 mL/min (90-130) 01/19/22 10:10 Glucose 164 mg/dL (65-115) H 01/19/22 10:10 Calculated Osmolality 279 mOsm/kg (285-295) L 01/19/22 10:10 Calcium 9.6 mg/dL (8.5-10.5) 01/19/22 10:10 Lipase 28 U/L (13-60) 01/19/22 10:10 Urine Color Kary (Yellow) 01/19/22 Unknown Urine Appearance Clear (CLEAR) 01/19/22 Unknown Urine pH 6 (5-7) 01/19/22 Unknown Ur Specific Logan 1.010 (1.005-1.030) 01/19/22 Unknown Urine Protein Trace (Negative) 01/19/22 Unknown Urine Glucose (UA) Norm (Normal) 01/19/22 Unknown Urine Ketones Negative (Negative) 01/19/22 Unknown Urine Blood Neg (Negative) 01/19/22 Unknown Urine Nitrate Negative (Negative) 01/19/22 Unknown Urine Bilirubin 1+ (Negative) H 01/19/22 Unknown Urine Urobilinogen 1 mg/dL (Negative) H 01/19/22 Unknown Ur Leukocyte Esterase Negative (Negative) 01/19/22 Unknown Urine RBC Rare /hpf (0-2) 01/19/22 Unknown Urine WBC None /hpf (0-5) 01/19/22 Unknown Ur Squamous Epith Cells Rare /hpf (0-5) 01/19/22 Unknown Amorphous Sediment Not Reportable 01/19/22 Unknown Urine Bacteria Trace /hpf (NONE) 01/19/22 Unknown Urine Mucus Trace /hpf 01/19/22 Unknown Discharge Plan Discharge Patient Disposition: Admitted As Inpatient Clinical Impression: Ovarian cyst Condition: Stable Coding Level of Care Code ED Nursery Worker for Chg Fwd Exam Comprehensive
[2022-01-19] MEDS: ondansetron 2 mg/ML SDV 2 mL 4 MG IVP ×2 (10:17→14:49)
[2022-01-19] MEDS: morphine 4 mg/mL SDV 1 mL IVP ×2 (10:18→12:21)
[2022-01-19] MEDS: sodium chloride 0.9% 1,000 ML 150 ML IV ×2 (10:19→14:48)
[2022-01-19 10:21] LABS: Basophils # 0.1 10^3/uL (0.0-0.1); Basophils % 0.5 %; Eosinophils # 0.3 10^3/uL (0.0-0.8); Eosinophils % 1.3 %; Hemoglobin 13.9 g/dL (11.5-15.3); Lymphocytes # 3.1 10^3/uL (0.8-4.8); Lymphocytes % 14.3 %; Mean Corpuscular HGB Conc 33.1 g/dL (30.0-36.0); Mean Corpuscular Hemoglobin 30.5 pg (28.0-34.0); Mean Corpuscular Volume 92.3 fl (81-99); Mean Platelet Volume 9.8 fL (7.4-10.4); Monocytes # 0.9 10^3/uL (0.2-0.9); Monocytes % 4.1 %; Neutrophils # 16.95 10^3/uL (1.8-7.7); Neutrophils % 78.2 %; Nucleated Red Blood Cells % 0 %; Platelet Count 379 10^3/cmm (130-400); Red Blood Count 4.55 10^6/uL (4.1-5.3); Red Cell Distribution Width 13.1 % (12.1-15.1); White Blood Count 21.7 10^3/uL (4.0-10.0)
[2022-01-19 10:40] LABS: INR 1.03 (0.8-1.2)
[2022-01-19 10:41] LABS: Anion Gap 18.1 (5-19); Blood Urea Nitrogen 11 mg/dL (6-20); Calcium 9.6 mg/dL (8.5-10.5); Carbon Dioxide 22 mmol/L (22-29); Chloride 97 mmol/L (98-107); Glomerular Filtration Rate 113.8 mL/min (90-130); Glucose 164 mg/dL (65-115); Osmolality Calculated 279 mOsm/kg (285-295); Potassium 4.1 mmol/L (3.5-5.1); Sodium 133 mmol/L (136-145)
[2022-01-19 12:15] LABS: Lipase 28 U/L (13-60)
[2022-01-19 12:34] LABS: Add Urine Microscopic? YES; Bilirubin Urine 1+ (Negative); Blood Urine Neg (Negative); Glucose Urine UA Norm (Normal); Ketones Urine Negative (Negative); Leukocyte Esterase Urine Negative (Negative); Nitrate Urine Negative (Negative); Protein Urine Trace (Negative); Urine Appearance Clear (CLEAR); Urine Color Amber (Yellow); Urobilinogen Urine 1 mg/dL (Negative); pH Urine 6 (5-7)
[2022-01-19 12:35] LABS: Add Urine Culture? No; Bacteria Urine TRACE /hpf; Mucus Urine TRACE /hpf; RBC Urine RARE /hpf (0-2); Squamous Epithelial Cell Urine RARE /hpf (0-5)
[2022-01-19 13:22] LABS: CA 125 4.9 U/mL (0-35)
[2022-01-19] MEDS: HYDROmorphone 1 mg/mL INJ 1 mL IVP (13:31)
[2022-01-19 14:15] VITALS: BMI 51.6
--- NOTE | 2022-01-19 14:33 | DCPLANNER ---
Addendum entered by Kathleen Condon 01/25/22 09:25: Patient has a follow up appointment scheduled for Sunday, February 06, 2022 at 2;[address] Cadena. Clinic will call patient with appointment information. Original Note: clinical product manager had message to schedule a follow up appointment for patient with [facility]. clinical product manager called the [facility], spoke with [employer], gave clinic patients information. clinical product manager was told that patients information would be printed and reviewed. Clinic will call patient with appointment information.
[2022-01-19] MEDS: HYDROcodone-acetaminophen 5-325 mg Tablet PO ×3 (14:49→23:21)
[2022-01-19] MEDS: metroNIDAZOLE IV 500 MG/100 ML PREMIX 100 MG IV ×2 (14:49→23:13)
[2022-01-19] MEDS: ceFOXitin 2,000 MG in sodium chloride 0.9% (plus) 50 ML 100 MG IV ×2 (16:13→21:12)
[2022-01-19] MEDS: doxycycline 100 MG in sodium chloride 0.9% (plus) 100 ML IV (16:59)
--- NOTE | 2022-01-19 18:47 | PM.OBGYHP ---
Providers/Chief Complaint Admitting Physician: Daniel Cadena MD Primary Care Provider: SAMANTHA Sullivan Chief Complaint: ABD pain; pos ovary twist HPI SPEECH LANGUAGE PATHOLOGIST ASSISTANT History of Present Illness Prerna Dalton is a 36 year old female G0, P0, came to the clinic after referral from a CT scan ordered due to possible kidney stones showing in mid pelvis mass but she had the with chief complaint of right pelvic pain. She was advised to go to the emergency room for further evaluation for possible ovarian torsion. In the emergency room after evaluation and ultrasound shows a complex adnexal mass, associated with a white count of 21,000. Review of Systems Const: Denies: fever(s), chills or body aches Eyes: Denies: eye discomfort ENMT: Denies: throat pain Card: Denies: chest pain Resp: Denies: dyspnea GI: Denies: abdominal pain, nausea or vomiting : Reports: other (Right lower pelvic area pain) Skin/Breast: Denies: rash Neuro: Denies: headache(s) Psych: Denies: depression or suicidal ideation Medications/Allergies Home Medications Medication Instructions Recorded Confirmed Last Taken Type albuterol sulfate 2.5 mg INHALATION Q6H PRN 01/07/21 01/19/22 Unknown History albuterol sulfate 90 mcg/actuation 2 puff INHALATION Q4H PRN 01/07/21 01/19/22 02/09/21 History aerosol inhaler cetirizine 10 mg tablet 10 mg PO QAM 01/07/21 01/19/22 02/12/21 History cyclobenzaprine 10 mg tablet 10 mg PO BEDTIME PRN 01/07/21 01/19/22 02/10/21 History fluticasone 250 mcg-salmeterol 50 1 ea INHALATION BID PRN 01/07/21 01/19/22 Unknown History mcg/dose blistr powdr for inhalation (Advair Diskus) pantoprazole 40 mg tablet,delayed 40 mg PO QAM 01/07/21 01/19/22 01/17/22 History release (Protonix) sertraline 100 mg tablet 100 mg PO QAM 01/07/21 01/19/22 01/17/22 History hydrochlorothiazide 25 mg tablet 25 mg PO QAM 01/19/22 01/19/22 01/17/22 History hydrocodone 5 mg-acetaminophen 325 1 tab PO TID PRN #14 tab 01/19/22 Unknown Rx mg tablet lisinopril 20 mg tablet 20 mg PO QAM 01/19/22 01/19/22 01/17/22 History metformin 1,000 mg tablet 1,000 mg PO BID 01/19/22 01/19/22 01/17/22 History multivitamin 1 tab PO BEDTIME 01/19/22 01/19/22 Unknown History naproxen 500 mg tablet (Naprosyn) 500 mg PO BID PRN #20 tab 01/19/22 Unknown Rx rosuvastatin 10 mg tablet 10 mg PO BEDTIME 01/19/22 01/19/22 01/17/22 History Allergies Allergy/AdvReac Type Severity Reaction Status Date / Time No Known Allergies Allergy Verified 01/19/22 13:07 PFS SPEECH LANGUAGE PATHOLOGIST ASSISTANT PFSH: Medical History (Updated 01/20/22 @ 06:51 by Daniel Cadena MD) Depression Diabetes GERD (gastroesophageal reflux disease) Seasonal allergies Surgical History (Updated 01/19/22 @ 15:51 by Nori Navarro RN) History of esophagogastroduodenoscopy (EGD) (02/14/21) [facility] [place]/P myringotomy with insertion of tube S/P partial hysterectomy Status post laparoscopic cholecystectomy (02/14/21) Family History (Updated 01/19/22 @ 08:56 by Lizzie Longoria LPN) Father CAD (coronary artery disease) Diabetes Hyperlipidemia Hypertension Denies family history of Clotting disorder Chronic kidney disease (CKD) Anesthesia complication Bleeding disorder Cancer Thyroid disease Stroke Personal Safety: Do you feel safe at home: No Victim of physical abuse: No Victim of emotional abuse: No Victim of sexual abuse: No Would you like help information on resources?: No History History History 0 Term Miscarriages/Ectopic Living Children Vitals/I&O/Wt Last Vital Signs Temp 97.3 F L 01/19/22 09:39 Pulse 83 01/20/22 04:17 Resp 14 01/20/22 04:17 BP 127/79 01/20/22 04:17 Pulse Ox 93 01/20/22 04:17 01/19/22 01/19/22 01/20/22 14:59 22:59 06:59 Intake Total 672.5 / 672.5 2300 / 2972.5 250 / 3222.5 Balance 672.5 / 672.5 2300 / 2972.5 250 / 3222.5 Weight last 48 hrs Weight 145.15 kg Weight 145.15 kg Physical Exam Const: COMMON NORMALS: no acute distress, average body habitus and patient oriented x3 GENERAL APPEARANCE: cooperative and well kempt HENMT: COMMON NORMALS: normocephalic and atraumatic HEAD & SCALP: normocephalic and atraumatic Neck/C-Spine: COMMON NORMALS: full ROM Chest: COMMONS NORMALS: normal inspection of the chest Resp: COMMON NORMALS: normal respiratory effort Cardio: COMMON NORMALS: regular rate and regular rhythm RATE: regular rate RHYTHM: regular rhythm GI: INSPECTION: Yes normal to inspection Neuro: COMMON NORMALS: patient oriented x3 Psych: APPEARANCE: Yes well kempt Data : 01/19/22 10:10 01/19/22 10:10 Results METAL MOULDER'S ASSISTANT Ultrasound [address] [address] Ultrasound Report Signed Patient: Prerna Dalton Unit #: [id number] : 1985 Age/Sex: 36 / F ADM Date: 01/19/22 Loc: ER Room/Bed: Attending Dr: Ordering Provider/Ordering MD: Michael Lovett , [facility] Date of Service: 01/19/22 Procedure(s): US transvaginal [id number] Accession Number(s): [id number] Report Number: [id number] PROCEDURE INFORMATION: Exam: US Pelvis, Transvaginal Exam date and time: 01/19/2022 10:34 AM Age: 36 years old Clinical indication: Pelvic pain; Prior surgery; Surgery date: 6+ months; Surgery type: Hysterectomy; Additional info: Suspected twisted ovary, per Dr. Bhakta TECHNIQUE: Imaging protocol: Real-time transvaginal pelvic ultrasound with image documentation. Transvaginal imaging was used for better evaluation of the endometrium, adnexa, and/or cervix. COMPARISON: CT kidney stone [id number] 12/29/2021 8:41 AM FINDINGS: Uterus:? Status post hysterectomy. Right ovary/adnexa: Normal ovarian blood flow.? There is a complex septated cyst 7.5 cm x 8.8 cm x 8.4 cm.? A 2nd complex septated cyst 11 mm x 11.7 mm x 9.5 mm. ? The right ovary measures 8.2 cm x 10.1 cm x 12.5 cm. Left ovary/adnexa:? Is not visualized. ? Intraperitoneal space:? Moderate volume free fluid collection is seen in the right adnexa are oval US/US transvaginal [id number] IMPRESSION: 1. Complex septated cyst right ovary. 2. Small septated cyst right ovary. 3.? Normal vascular flow right ovary. 4. Status post hysterectomy. 5. Left ovary is not visible. 6. Moderate volume free fluid collection right adnexa? A&P Assessment and plan (1) Right tubo-ovarian mass: Mrs. Dalton 36-year-old female G0, P0 status post hysterectomy. Was sent to the emergency room with suspicion of possible ovarian torsion. Ultrasound shows normal blood flow to the ovary. Her white count is 21,000, will treat with IV therapy and observe. Status: Acute Plan IV antibiotic therapy. Attestations Medical Necessity Statement*: In my professional opinion per admitting diagnosis Coding Level of Care Code Acute Artillery Officer for polly Fwd Exam Detailed Diagnoses Right tubo-ovarian mass N83.8
[2022-01-19] MEDS: zolpidem 5 mg Tablet 10 MG PO (21:13)
[2022-01-19 21:28] VITALS: BP 118/71; PULSE 72; RESP 14; O2SAT 96
[2022-01-20] MEDS: ceFOXitin 2,000 MG in sodium chloride 0.9% (plus) 50 ML 100 MG IV ×4 (03:05→21:04)
[2022-01-20] MEDS: sodium chloride 0.9% 1,000 ML 150 ML IV (03:31)
[2022-01-20] MEDS: HYDROcodone-acetaminophen 5-325 mg Tablet PO ×5 (03:31→23:02)
[2022-01-20] MEDS: doxycycline 100 MG in sodium chloride 0.9% (plus) 100 ML IV ×2 (03:44→14:39)
[2022-01-20 04:17] VITALS: BP 127/79; PULSE 83; RESP 14; O2SAT 93
[2022-01-20] MEDS: metroNIDAZOLE IV 500 MG/100 ML PREMIX 100 MG IV ×3 (07:14→23:03)
[2022-01-20 07:30] VITALS: BP 102/62; PULSE 75; RESP 18; TEMP 36.8
[2022-01-20 10:57] LABS: Basophils # 0.1 10^3/uL (0.0-0.1); Basophils % 0.4 %; Eosinophils # 0.4 10^3/uL (0.0-0.8); Eosinophils % 2.1 %; Hematocrit 36.9 % (37.0-47.0); Hemoglobin 12.2 g/dL (11.5-15.3); Lymphocytes % 15.3 %; Mean Corpuscular HGB Conc 33.1 g/dL (30.0-36.0); Mean Corpuscular Hemoglobin 31.3 pg (28.0-34.0); Mean Corpuscular Volume 94.6 fl (81-99); Mean Platelet Volume 9.7 fL (7.4-10.4); Monocytes # 1.1 10^3/uL (0.2-0.9); Monocytes % 5.6 %; Neutrophils # 14.74 10^3/uL (1.8-7.7); Neutrophils % 75.3 %; Nucleated Red Blood Cells % 0 %; Platelet Count 321 10^3/cmm (130-400); Red Cell Distribution Width 13.4 % (12.1-15.1); White Blood Count 19.6 10^3/uL (4.0-10.0)
[2022-01-20 11:28] LABS: Add Urine Culture? No; Bacteria Urine TRACE /hpf; Bilirubin Urine 1+ (Negative); Blood Urine Neg (Negative); Glucose Urine UA Norm (Normal); Ketones Urine 1+ (Negative); Leukocyte Esterase Urine Negative (Negative); Mucus Urine 4+ /hpf; Nitrate Urine Negative (Negative); Protein Urine Trace (Negative); RBC Urine RARE /hpf (0-2); Squamous Epithelial Cell Urine RARE /hpf (0-5); Urine Appearance Clear (CLEAR); Urine Color Yellow (Yellow); Urobilinogen Urine 1 mg/dL (Negative); WBC Urine 0-4 /hpf (0-5); pH Urine 5 (5-7)
[2022-01-20 13:47] VITALS: BP 145/92; PULSE 72; RESP 18; TEMP 36.8
[2022-01-20] MEDS: lisinopril 20 mg Tablet PO (15:45)
--- NOTE | 2022-01-20 15:58 | PC.NURSE ---
0710 IV WAS LEAKING PRIOR TO MY SHIFT AND GAYATRI HAD TRIED ONCE WELL ADELINE CASTANO. THIS RF TEST TECHNICIAN GOT IV IN RIGHT HAND WITH #18 FRANK.
[2022-01-20 21:12] VITALS: BP 128/72; PULSE 86; RESP 16; O2SAT 95
[2022-01-20] MEDS: nicotine 21 mg Patch 1 PATCH TRANSDERMA (21:26)
[2022-01-20] MEDS: zolpidem 5 mg Tablet 10 MG PO (21:26)
[2022-01-21] VITALS (12 sets, daily range): BP systolic 109–147; BP diastolic 63–93; PULSE 60–101; RESP 14–22; TEMP 36.4–37.2; O2SAT 91–97
[2022-01-21] MEDS: ceFOXitin 2,000 MG in sodium chloride 0.9% (plus) 50 ML 100 MG IV ×4 (03:02→21:21)
[2022-01-21] MEDS: doxycycline 100 MG in sodium chloride 0.9% (plus) 100 ML IV ×2 (03:34→17:49)
[2022-01-21 04:33] LABS: Basophils # 0.1 10^3/uL (0.0-0.1); Basophils % 0.6 %; Eosinophils # 0.3 10^3/uL (0.0-0.8); Eosinophils % 1.6 %; Hematocrit 37.1 % (37.0-47.0); Hemoglobin 12.1 g/dL (11.5-15.3); Lymphocytes # 3.1 10^3/uL (0.8-4.8); Lymphocytes % 15.5 %; Mean Corpuscular HGB Conc 32.6 g/dL (30.0-36.0); Mean Corpuscular Hemoglobin 30.9 pg (28.0-34.0); Mean Corpuscular Volume 94.6 fl (81-99); Mean Platelet Volume 9.4 fL (7.4-10.4); Monocytes # 1.1 10^3/uL (0.2-0.9); Monocytes % 5.3 %; Neutrophils # 15.06 10^3/uL (1.8-7.7); Neutrophils % 75.7 %; Nucleated Red Blood Cells % 0 %; Platelet Count 322 10^3/cmm (130-400); Red Blood Count 3.92 10^6/uL (4.1-5.3); Red Cell Distribution Width 13.3 % (12.1-15.1); White Blood Count 19.9 10^3/uL (4.0-10.0)
[2022-01-21] MEDS: metroNIDAZOLE IV 500 MG/100 ML PREMIX 100 MG IV ×3 (07:45→23:01)
--- NOTE | 2022-01-21 10:57 | P.PN_ITS ---
Subjective Subjective: Mrs. Dalton 36-year-old female G0, P0 status post hysterectomy seen at the clinic and was sent to the emergency room with suspicion of possible ovarian torsion. Refers pain is tolerable now, but it was bad last night. Vitals/I&O/Wt Last Vital Signs Temp 98.3 F 01/20/22 13:47 Pulse 86 01/20/22 21:12 Resp 16 01/20/22 21:12 BP 128/72 01/20/22 21:12 Pulse Ox 95 01/20/22 21:12 01/20/22 01/21/22 01/21/22 22:59 06:59 14:59 Intake Total 800 / 0 150 / 2200 Balance 800 / 0 150 / 2200 Weight last 48 hrs Weight 145.15 kg Physical Exam Const: COMMON NORMALS: no acute distress, patient oriented x3, healthy appearing, alert and well nourished GENERAL APPEARANCE: well kempt Neck/C-Spine: COMMON NORMALS: no JVD GENERAL: Yes normal visual inspection Chest: COMMONS NORMALS: normal inspection of the chest Resp: COMMON NORMALS: normal respiratory effort and No use of accessory muscles Cardio: COMMON NORMALS: no JVD and regular rate JUGULAR VENOUS DISTENTION: no JVD RATE: regular rate GI: COMMON NORMALS: Soft to palpation INSPECTION: Yes central obesity PALPATION: Yes Soft to palpation and Yes Tenderness to palpation present (GI) Details: RLQ PERCUSSION: normal to percussion : COMMON NORMALS: Yes no CVA tenderness BLADDER/KIDNEY EXAM: Yes no CVA tenderness SPECULUM EXAM - CERVIX: Yes Cervix absent BIMANUAL EXAM - VAGINA & UTERUS: Yes uterus absent BIMANUAL EXAM - ADNEXA, OTHER: Yes Adnexal mass present on the right (8 cm) tender Back/Pelvis: COMMON NORMALS: no CVA tenderness Extremity: COMMON NORMALS: no clubbing, cyanosis or edema, no calf tenderness and no pedal edema Neuro: COMMON NORMALS: patient oriented x3 SENSORIUM/ORIENTATION: Yes alert Psych: COMMON NORMALS: mental status grossly normal, cooperative, normal affect and speech normal APPEARANCE: Yes well kempt ATTITUDE: Yes engaged SPEECH: Yes normal speech Data : 01/21/22 04:30 01/19/22 10:10 US: Radiologist's impression: [employer] [id number] ReportSigned Patient: Prerna Dalton RUnit #: [id number]: 1985Acct#:[id number]/Sex: 36 / FADM Date: 01/19/22Loc: ERRoom/Bed:Attending Dr: Ordering Provider/Ordering MD: Michael Lovett , TWISTER TENDER PAPER- Date of Service: 01/19/22 Procedure(s): US transvaginal [id number] Accession Number(s): [id number] Report Number: [id number] PROCEDURE INFORMATION: Exam: US Pelvis, Transvaginal Exam date and time: 01/19/2022 10:34 AM Age: 36 years old Clinical indication: Pelvic pain; Prior surgery; Surgery date: 6+ months; Surgery type: Hysterectomy; Additional info: Suspected twisted ovary, per Dr. Bhakta TECHNIQUE: Imaging protocol: Real-time transvaginal pelvic ultrasound with image documentation. Transvaginal imaging was used for better evaluation of the endometrium, adnexa, and/or cervix. COMPARISON: CT kidney stone [id number] 12/29/2021 8:41 AM FINDINGS: Uterus: Status post hysterectomy. Right ovary/adnexa: Normal ovarian blood flow. There is a complex septated cyst 7.5 cm x 8.8 cm x 8.4 cm. A 2nd complex septated cyst 11 mm x 11.7 mm x 9.5 mm. The right ovary measures 8.2 cm x 10.1 cm x 12.5 cm. Left ovary/adnexa: Is not visualized. Intraperitoneal space: Moderate volume free fluid collection is seen in the right adnexa are oval US/US transvaginal [id number] IMPRESSION: 1. Complex septated cyst right ovary. 2. Small septated cyst right ovary. 3. Normal vascular flow right ovary. 4. Status post hysterectomy. 5. Left ovary is not visible. 6. Moderate volume free fluid collection right adnexa Dictated By:Jackie Hoffman By:Jackie Hoffman Date/Time:01/19/22 1141 A&P Assessment and plan (1) Right tubo-ovarian mass: Mrs. Dalton 36-year-old female G0, P0 status post hysterectomy. Was sent to the emergency room with suspicion of possible ovarian torsion. Ultrasound shows n ormal blood flow to the ovary. Her white count is 19.9, she has been with IV therapy for 48h without improvement. The patietn was counseled recommende exploratory laparotomy. She was informed of the risks and benefits of [an anterior colporrhaphy]. Risks included but were not limited to bleeding, i nfection, and injury to the vagina, bladder, or urethra, internal organs and incomplete resolution of symptoms. The patient expressed understanding of the risks involved, all questions were answered, and the patient consented to the procedure and signed the informed consent. Status: Acute Plan Exploratory laparotomy. Attestations Medical Necessity Statement*: In my professional opinion per admitting diagnosis Coding Level of Care Code Acute Senior Lead Developer for [facility] Fwd Diagnoses Right tubo-ovarian mass N83.8
--- NOTE | 2022-01-21 11:43 | P.ANESASSM_ITS ---
Pre-Anesthetic Assessment Height/Weight: Height 1.68 m Weight 145.15 kg Temp Pulse Resp BP Pulse Ox 98.4 F 89 18 127/87 97 01/21/22 11:35 01/21/22 11:35 01/21/22 11:35 01/21/22 11:35 01/21/22 11:35 Preop Diagnosis: Chronic cholecystitis, GERD Operation Date: 01/21/22 12:00 Proposed Procedures p Exploratory Laparotomy(Not Applicable) - Daniel Cadena MD Familial anesthetic complications: NOne Was Beta Edmond taken within 24 hours: N/A Was Clonidine taken within 24 hours: N/A Last intake: > 8hrs Social Tobacco and No alcohol Exam alert, oriented x 3, clear to auscultation bilaterally and regular rate & rhythm Airway Mallampati: Class I Dentition: chipped and other (missing) CV/HEM Hypertension None reported Hepatic None reported GI Gastroesophageal Reflux Disease Metabolic Diabetes Mellitus, Hyperlipidemia and Morbid Obesity Musc/sk None reported Neuropsych None reported Anesthetic Plan ASA status: 3 Anesthesia: General Risk of > 500 ml blood loss (7ml/kg in children): No Medications/Allergies Home Medications Medication Instructions Recorded Confirmed Last Taken Type albuterol sulfate 2.5 mg INHALATION Q6H PRN 01/07/21 01/19/22 Unknown History albuterol sulfate 90 mcg/actuation 2 puff INHALATION Q4H PRN 01/07/21 01/19/22 02/09/21 History aerosol inhaler cetirizine 10 mg tablet 10 mg PO QAM 01/07/21 01/19/22 02/12/21 History cyclobenzaprine 10 mg tablet 10 mg PO BEDTIME PRN 01/07/21 01/19/22 02/10/21 History fluticasone 250 mcg-salmeterol 50 1 ea INHALATION BID PRN 01/07/21 01/19/22 Unknown History mcg/dose blistr powdr for inhalation (Advair Diskus) pantoprazole 40 mg tablet,delayed 40 mg PO QAM 01/07/21 01/19/22 01/17/22 History release (Protonix) sertraline 100 mg tablet 100 mg PO QAM 01/07/21 01/19/22 01/17/22 History hydrochlorothiazide 25 mg tablet 25 mg PO QAM 01/19/22 01/19/22 01/17/22 History hydrocodone 5 mg-acetaminophen 325 1 tab PO TID PRN #14 tab 01/19/22 Unknown Rx mg tablet lisinopril 20 mg tablet 20 mg PO QAM 01/19/22 01/19/22 01/17/22 History metformin 1,000 mg tablet 1,000 mg PO BID 01/19/22 01/19/22 01/17/22 History multivitamin 1 tab PO BEDTIME 01/19/22 01/19/22 Unknown History naproxen 500 mg tablet (Naprosyn) 500 mg PO BID PRN #20 tab 01/19/22 Unknown Rx rosuvastatin 10 mg tablet 10 mg PO BEDTIME 01/19/22 01/19/22 01/17/22 History Allergies Allergy/AdvReac Type Severity Reaction Status Date / Time No Known Allergies Allergy Verified 01/19/22 13:07 Current Medications Generic Name Dose Route Start Last Admin Trade Name Freq PRN Reason Stop Dose Admin Hydrocodone Bitart/Acetaminophen 1 - 2 tab 01/19/22 14:17 01/20/22 23:02 Hydrocodone-Acetaminophen 5-325 Mg Tablet PO 2 tab Q4H PRN Administration MODERATE TO SEVERE PAIN Sodium Chloride 1,000 mls @ 150 mls/hr 01/19/22 09:45 01/20/22 19:11 Sodium Chloride 0.9% IV Not Given .Q6H40M KAELA Doxycycline Hyclate 100 mg/ 100 mls @ 100 mls/hr 01/19/22 15:30 01/21/22 03:34 Sodium Chloride IV 100 mls/hr Q12H KAELA Administration Protocol Cefoxitin Sodium 2,000 mg/ 50 mls @ 100 mls/hr 01/19/22 15:00 01/21/22 09:45 Sodium Chloride IV 100 mls/hr Q6H KAELA Administration Protocol Metronidazole 500 mg in 100 mls @ 100 mls/hr 01/19/22 23:00 01/21/22 07:45 Flagyl Iv IV 100 mls/hr Q8H KAELA Administration Protocol Nicotine 1 patch 01/20/22 21:00 01/20/22 21:26 Nicotine 21 Mg Patch TRANSDERMA 1 patch DAILY KAELA Administration Ondansetron HCl 4 mg 01/19/22 14:32 01/19/22 14:49 Ondansetron 2 Mg/Ml Sdv 2 Ml IVP 4 mg Q6H PRN Administration NAUSEA AND VOMITING Zolpidem Tartrate 10 mg 01/20/22 21:00 01/20/22 21:26 Zolpidem 5 Mg Tablet PO 10 mg BEDTIME KAELA Administration PFSH Anesthesia Medical History (Updated 01/20/22 @ 11:38 by Meenu Rowe MD) Depression Diabetes GERD (gastroesophageal reflux disease) Seasonal allergies Surgical History (Updated 01/20/22 @ 11:38 by Meenu Rowe MD) History of esophagogastroduodenoscopy (EGD) (02/14/21) History of laparoscopic appendectomy dr[facility] History of surgery PT STATES HAD CYST REMOVED OFF RIGHT OVARY WITH HER APPY SURGERY WITH DR. MEDEROS S/P myringotomy with insertion of tube S/P partial hysterectomy Status post laparoscopic cholecystectomy (02/14/21) Family History (Updated 01/19/22 @ 08:56 by Lizzie Longoria LPN) Father CAD (coronary artery disease) Diabetes Hyperlipidemia Hypertension Denies family history of Clotting disorder Chronic kidney disease (CKD) Anesthesia complication Bleeding disorder Cancer Thyroid disease Stroke Data Anesthesia : 01/21/22 04:30 01/19/22 10:10 Short CBC 01/20/22 01/21/22 Range/Units 10:35 04:30 WBC 19.6 H 19.9 H (4.0-10.0) 10^3/uL Hgb 12.2 12.1 (11.5-15.3) g/dL Hct 36.9 L 37.1 (37.0-47.0) % MCV 94.6 94.6 (81-99) fl Plt Count 321 322 (130-400) 10^3/cmm Neut % (Auto) 75.3 75.7 % Neut # (Auto) 14.74 H 15.06 H (1.8-7.7) 10^3/uL Urine 01/19/22 01/20/22 Range/Units Unknown 10:40 Urine Color [place] Yellow (Yellow) Urine Appearance Clear Clear (CLEAR) Urine pH 6 5 (5-7) Ur Specific [place] 1.010 1.020 (1.005-1.030) Urine Protein Trace Trace (Negative) Urine Glucose (UA) Norm Norm (Normal) Urine Ketones Negative 1+ H (Negative) Urine Nitrate Negative Negative (Negative) Urine Bilirubin 1+ H 1+ H (Negative) Ur Leukocyte Esterase Negative Negative (Negative) Urine RBC Rare Rare (0-2) /hpf Urine WBC None 0-4 H (0-5) /hpf Cardiac Studies: No Data to Display
--- NOTE | 2022-01-21 13:48 | P.PCN_ITS ---
PACU note Narrative: VSS, Good respiratory effort, report to BOX SPRING MAKER Exam: awake
--- NOTE | 2022-01-21 13:48 | PM.PACU ---
PACU note Narrative: VSS, Good respiratory effort, report to CUSTOMER SERVICE REPRESENTATIVE TEACHER Exam: awake
[2022-01-21] MEDS: ondansetron 2 mg/ML SDV 2 mL 4 MG IVP ×2 (13:59→15:02)
--- NOTE | 2022-01-21 14:06 | PM.OP ---
Operative Report Date of procedure: January 21, 2022 Pre-op diagnosis: Preop Diagnosis Chronic cholecystitis, GERD Post-op diagnosis: Right ovarian mass Post-op findings: Right ovarian torsion Procedure done: Exploratory laparotomy Right oophorectomy Specimens removed/disposition: Right ovary and right ovarian cyst with fluid Pathology: Right ovary Surgeon: Daniel Cadena MD Estimated blood loss (mL): 50 IV fluids (mL): 500 Urine output (mL): 50 Procedure: After obtaining informed consent, the patient was taken to the operating room and placed in the supine position, given general anesthesia, and prepped and draped in sterile fashion. A Pfannenstiel incision was made 2 cm above the symphysis pubis and extended sharply to the rectus fascia. The fascial incision was bilaterally incised with curved Diaz scissors, and the rectus sheath was superiorly and interiorly by sharp and blunt dissection. The peritoneum was grasped between two Maureen clamps, elevated, and incised with a scalpel. The pelvis was examined with the findings noted above. and the abdomen was thoroughly explored. Peritoneal washing was collected for cytology. A large Roni retractor was placed into the incision, and the bowel was packed away with moist laparotomy sponges. An enlarged right ovary with cyst dark color fluid was noted. Right ovary was friable. The ovarian cyst ruptured while trying to determine what it is adhered to. The fluid was suctioned. The ovarian mas was completely dissected via hydrodissection. Using the Enseal device. The ovarian stalk was clamped sealed and cut. The ovary was excised and sent to pathology. The pelvis was copiously irrigated with warm normal saline, and all sponges and instruments were removed. The parietal peritoneum was closed with running #2-0 Vicryl. The fascia was closed with running #0 Vicryl. The skin was closed with interrupted subcuticular absorbable rashawn. The incision was infiltrated with Exparel for pain management. Sponge, lap, needle, and instrument counts were correct times three. The patient was taken to the recovery room, awake and in stable condition. Related Problem List Diagnoses (1) Right tubo-ovarian mass: (2) RLQ abdominal pain:
--- NOTE | 2022-01-21 14:23 | PC.NURSE ---
Patient transferred to OR via bed by OR nurse.
[2022-01-21] MEDS: ketorolac 30 mg/mL INJ IVP ×2 (15:02→20:34)
[2022-01-21] MEDS: dextrose 5%-lactated ringers 1,000 ML 125 ML IV (15:02)
[2022-01-21] MEDS: HYDROcodone-acetaminophen 5-325 mg Tablet PO (17:52)
[2022-01-21] MEDS: docusate sodium 100 mg Capsule PO (19:22)
[2022-01-21] MEDS: metformin 500 mg Tablet 1000 MG PO (19:22)
[2022-01-21] MEDS: multivitamin therapeutic Tablet 1 TAB PO (20:34)
[2022-01-21] MEDS: atorvastatin 40 mg Tablet PO (20:34)
[2022-01-21] MEDS: nicotine 21 mg Patch 1 PATCH TRANSDERMA (21:21)
[2022-01-22 00:50] VITALS: BP 92/54; PULSE 66; RESP 16; O2SAT 96
[2022-01-22] MEDS: ceFOXitin 2,000 MG in sodium chloride 0.9% (plus) 50 ML 100 MG IV ×2 (03:06→09:26)
[2022-01-22] MEDS: ketorolac 30 mg/mL INJ IVP ×2 (03:06→08:22)
[2022-01-22 04:15] VITALS: BP 96/59; PULSE 76; RESP 16; O2SAT 96
[2022-01-22] MEDS: doxycycline 100 MG in sodium chloride 0.9% (plus) 100 ML IV (04:16)
[2022-01-22 04:51] LABS: Hematocrit 34.7 % (37.0-47.0); Hemoglobin 11.2 g/dL (11.5-15.3); Mean Corpuscular HGB Conc 32.3 g/dL (30.0-36.0); Mean Corpuscular Hemoglobin 30.3 pg (28.0-34.0); Mean Corpuscular Volume 93.8 fl (81-99); Mean Platelet Volume 9.7 fL (7.4-10.4); Platelet Count 347 10^3/cmm (130-400); Red Cell Distribution Width 13.4 % (12.1-15.1)
[2022-01-22] MEDS: pantoprazole DR 40 mg Tablet PO (05:59)
[2022-01-22] MEDS: cetirizine 10 mg Tablet PO (05:59)
[2022-01-22] MEDS: hydroCHLOROthiazide 25 mg Tablet PO (05:59)
[2022-01-22] MEDS: lisinopril 20 mg Tablet PO (05:59)
[2022-01-22] MEDS: sertraline 100 mg Tablet PO (06:21)
[2022-01-22] MEDS: metroNIDAZOLE IV 500 MG/100 ML PREMIX 100 MG IV (08:22)
[2022-01-22] MEDS: docusate sodium 100 mg Capsule PO ×2 (08:23→18:12)
[2022-01-22 08:26] VITALS: BP 87/79; PULSE 79; RESP 16; O2SAT 96
[2022-01-22] MEDS: metformin 500 mg Tablet 1000 MG PO ×2 (09:25→18:12)
[2022-01-22] MEDS: HYDROcodone-acetaminophen 5-325 mg Tablet PO ×2 (12:06→21:00)
[2022-01-22] MEDS: ibuprofen 800 mg tablet PO ×2 (16:40→21:39)
--- NOTE | 2022-01-22 21:30 | PC.NURSE ---
Pain Reassessment unable to reassess pain on the JAN, completed a Pain Reassessment on worklist at 2129
[2022-01-22] MEDS: atorvastatin 40 mg Tablet PO (21:40)
[2022-01-22] MEDS: multivitamin therapeutic Tablet 1 TAB PO (21:40)
[2022-01-22 22:00] VITALS: BP 108/74; PULSE 69; RESP 16; O2SAT 95
[2022-01-23 04:00] VITALS: BP 97/68; PULSE 66; RESP 16; TEMP 36.4; O2SAT 95
[2022-01-23] MEDS: sertraline 100 mg Tablet PO (05:42)
[2022-01-23] MEDS: hydroCHLOROthiazide 25 mg Tablet PO (05:43)
[2022-01-23] MEDS: ibuprofen 800 mg tablet PO (05:43)
[2022-01-23] MEDS: pantoprazole DR 40 mg Tablet PO (05:43)
[2022-01-23] MEDS: lisinopril 20 mg Tablet PO (05:43)
[2022-01-23] MEDS: cetirizine 10 mg Tablet PO (05:43)
[2022-01-23 06:07] LABS: Basophils # 0.1 10^3/uL (0.0-0.1); Basophils % 0.6 %; Eosinophils # 0.4 10^3/uL (0.0-0.8); Eosinophils % 2.4 %; Hematocrit 34.5 % (37.0-47.0); Hemoglobin 11.3 g/dL (11.5-15.3); Lymphocytes # 3.9 10^3/uL (0.8-4.8); Lymphocytes % 25.4 %; Mean Corpuscular HGB Conc 32.8 g/dL (30.0-36.0); Mean Corpuscular Hemoglobin 31.2 pg (28.0-34.0); Mean Corpuscular Volume 95.3 fl (81-99); Mean Platelet Volume 9.8 fL (7.4-10.4); Monocytes # 0.9 10^3/uL (0.2-0.9); Monocytes % 5.7 %; Neutrophils # 9.59 10^3/uL (1.8-7.7); Neutrophils % 63.2 %; Nucleated Red Blood Cells % 0 %; Platelet Count 375 10^3/cmm (130-400); Red Blood Count 3.62 10^6/uL (4.1-5.3); Red Cell Distribution Width 13.7 % (12.1-15.1); White Blood Count 15.2 10^3/uL (4.0-10.0)
[2022-01-23 06:24] LABS: Alanine Aminotransferase 34 U/L (0-33); Albumin Level 3.4 g/dL (3.5-5.2); Alkaline Phosphatase 93 IU/L (35-105); Anion Gap 13.2 (5-19); Aspartate Amino Transferase 22 U/L (0-32); Blood Urea Nitrogen 7 mg/dL (6-20); Calcium 8.5 mg/dL (8.5-10.5); Carbon Dioxide 23 mmol/L (22-29); Chloride 100 mmol/L (98-107); Globulin 2.6 g/dL (1.3-4.6); Glomerular Filtration Rate 140.4 mL/min (90-130); Glucose 136 mg/dL (65-115); Osmolality Calculated 276 mOsm/kg (285-295); Potassium 3.2 mmol/L (3.5-5.1); Sodium 133 mmol/L (136-145); Total Bilirubin 0.3 mg/dL (0.15-1.2)
[2022-01-23] MEDS: docusate sodium 100 mg Capsule PO (08:50)
[2022-01-23] MEDS: metformin 500 mg Tablet 1000 MG PO (08:50)
[2022-01-23 11:03] VITALS: BP 127/81; PULSE 65; RESP 16; TEMP 36.8; O2SAT 96
[2022-01-23 15:00] VITALS: BP 118/72; PULSE 72; RESP 16; TEMP 36.8
--- NOTE | 2022-01-23 15:14 | P.DS_ITS ---
Discharge Providers COMMUNITY EDUCATOR Date of Admission: 01/19/22 12:52 Date of Discharge: 01/31/22 Attending Provider at Admission: Daniel Cadena MD Attending Provider at Discharge: Daniel Cadena MD Primary Care Provider: SAMANTHA Sullivan Diagnoses at Discharge Discharge Diagnosis (1) Right tubo-ovarian mass: Status: Resolved Reason for Visit Reason for Visit: ABD pain; pos ovary twist Hospital Course Hospital Course Mrs. Dalton admitted from ER due pelvic pain, adnexal mass and elevated WBC. IV antibiotics therapy given, the patient pain did not improve and she take to OR for exploratory laparotomy. A right salpingooophorectomy was performed. Postop obesrvation was uneventful. She S/P right salpingoophorectmy POD2, afebrile and hemodenamically stable. Tolerating diet well. Ambulating without difficulty. Physical Exam Narrative: GA: Alert and oriented ?3. HEENT: WNL. Heart: Regular rate and rhythm. Lungs: Clear to auscultation bilaterally. Abdomen: Bowel sounds present, nontender, minimal tenderness, incision clean and dry, no redness, pain or edema. RESIDENTIAL LIFE DIRECTOR: No bleeding. Extremities: No edema, no cyanosis, no calves pain. Urinary Catheter Management: Huggins: Cath Placed During This Visit: yes, but has since been removed by the nurse Reason for Continuing Indwelling Catheter: Decision to DC Catheter Urinary Catheter Date of Insertion: 01/21/22 Urinary Catheter Time of Insertion: 12:10 Date Urinary Catheter Removed: 01/22/22 Time Urinary Catheter Discontinued: 04:54 History History History 0 Term Miscarriages/Ectopic Living Children Discharge Data Studies Completed and Pending Completed Studies During Hospitalization Category Date Time Status US transvaginal [id number] Urgent Ultrasound 01/19/22 09:43 Completed Pending at discharge Category Date Time Status Pathology: Surgical [PTH] Routine Pth 01/21/22 13:55 Received Radiology Impressions Transvaginal US 01/19/22 09:43 IMPRESSION: 1. Complex septated cyst right ovary. 2. Small septated cyst right ovary. 3. Normal vascular flow right ovary. 4. Status post hysterectomy. 5. Left ovary is not visible. 6. Moderate volume free fluid collection right adnexa Laboratory Results WBC 15.2 10^3/uL (4.0-10.0) H 01/23/22 05:30 RBC 3.62 10^6/uL (4.1-5.3) L 01/23/22 05:30 Hgb 11.3 g/dL (11.5-15.3) L 01/23/22 05:30 Hct 34.5 % (37.0-47.0) L 01/23/22 05:30 MCV 95.3 fl (81-99) 01/23/22 05:30 MCH 31.2 pg (28.0-34.0) 01/23/22 05:30 MCHC 32.8 g/dL (30.0-36.0) 01/23/22 05:30 RDW 13.7 % (12.1-15.1) 01/23/22 05:30 Plt Count 375 10^3/cmm (130-400) 01/23/22 05:30 MPV 9.8 fL (7.4-10.4) 01/23/22 05:30 Neut % (Auto) 63.2 % 01/23/22 05:30 Lymph % (Auto) 25.4 % 01/23/22 05:30 [place] % (Auto) 5.7 % 01/23/22 05:30 Eos % (Auto) 2.4 % 01/23/22 05:30 Baso % (Auto) 0.6 % 01/23/22 05:30 Neut # (Auto) 9.59 10^3/uL (1.8-7.7) H 01/23/22 05:30 Lymph # (Auto) 3.9 10^3/uL (0.8-4.8) 01/23/22 05:30 [place] # (Auto) 0.9 10^3/uL (0.2-0.9) 01/23/22 05:30 Eos # (Auto) 0.4 10^3/uL (0.0-0.8) 01/23/22 05:30 Baso # (Auto) 0.1 10^3/uL (0.0-0.1) 01/23/22 05:30 Nucleated RBC % (auto) 0 % 01/23/22 05:30 Nucleated RBCs # 0.0 /100WBC 01/23/22 05:30 PT 13.80 SECONDS (12.1-14.9) 01/19/22 10:10 INR 1.03 (0.8-1.2) 01/19/22 10:10 Sodium 133 mmol/L (136-145) L 01/23/22 05:30 Potassium 3.2 mmol/L (3.5-5.1) L 01/23/22 05:30 Chloride 100 mmol/L (98-107) 01/23/22 05:30 Carbon Dioxide 23 mmol/L (22-29) 01/23/22 05:30 Anion Gap 13.2 (5-19) 01/23/22 05:30 BUN 7 mg/dL (6-20) 01/23/22 05:30 Creatinine 0.5 mg/dL (0.5-0.9) 01/23/22 05:30 GFR Calculation 140.4 mL/min (90-130) H 01/23/22 05:30 Glucose 136 mg/dL (65-115) H 01/23/22 05:30 Calculated Osmolality 276 mOsm/kg (285-295) L 01/23/22 05:30 Calcium 8.5 mg/dL (8.5-10.5) 01/23/22 05:30 Total Bilirubin 0.3 mg/dL (0.15-1.2) 01/23/22 05:30 AST 22 U/L (0-32) 01/23/22 05:30 ALT 34 U/L (0-33) H 01/23/22 05:30 Alkaline Phosphatase 93 IU/L (35-105) 01/23/22 05:30 Total Protein 6.0 g/dL (6.6-8.7) L 01/23/22 05:30 Albumin 3.4 g/dL (3.5-5.2) L 01/23/22 05:30 Globulin 2.6 g/dL (1.3-4.6) 01/23/22 05:30 Lipase 28 U/L (13-60) 01/19/22 10:10 CA 125 Antigen 4.9 U/mL (0-35) 01/19/22 10:10 Urine Color Yellow (Yellow) 01/20/22 10:40 Urine Appearance Clear (CLEAR) 01/20/22 10:40 Urine pH 5 (5-7) 01/20/22 10:40 Ur Specific [place] 1.020 (1.005-1.030) 01/20/22 10:40 Urine Protein Trace (Negative) 01/20/22 10:40 Urine Glucose (UA) Norm (Normal) 01/20/22 10:40 Urine Ketones 1+ (Negative) H 01/20/22 10:40 Urine Blood Neg (Negative) 01/20/22 10:40 Urine Nitrate Negative (Negative) 01/20/22 10:40 Urine Bilirubin 1+ (Negative) H 01/20/22 10:40 Urine Urobilinogen 1 mg/dL (Negative) H 01/20/22 10:40 Ur Leukocyte Esterase Negative (Negative) 01/20/22 10:40 Urine RBC Rare /hpf (0-2) 01/20/22 10:40 Urine WBC 0-4 /hpf (0-5) H 01/20/22 10:40 Ur Squamous Epith Cells Rare /hpf (0-5) 01/20/22 10:40 Amorphous Sediment Not Reportable 01/20/22 10:40 Urine Bacteria Trace /hpf (NONE) 01/20/22 10:40 Urine Mucus 4+ /hpf 01/20/22 10:40 Vitals Last Vital Signs Temp 98.2 F 01/23/22 11:03 Pulse 65 01/23/22 11:03 Resp 16 01/23/22 11:03 BP 127/81 01/23/22 11:03 Pulse Ox 96 01/23/22 11:03 Results RESIDENTIAL LIFE DIRECTOR Ultrasound [address] [address] Ultrasound Report Signed Patient: Prerna Dalton Unit #: [id number] : 1985 Age/Sex: 36 / F ADM Date: 01/19/22 Loc: ER Room/Bed: Attending Dr: Ordering Provider/Ordering MD: Michael Lovett Sr, [facility] Date of Service: 01/19/22 Procedure(s): US transvaginal [id number] Accession Number(s): [id number] Report Number: [id number] PROCEDURE INFORMATION: Exam: US Pelvis, Transvaginal Exam date and time: 01/19/2022 10:34 AM Age: 36 years old Clinical indication: Pelvic pain; Prior surgery; Surgery date: 6+ months; Surgery type: Hysterectomy; Additional info: Suspected twisted ovary, per Dr. Bhakta TECHNIQUE: Imaging protocol: Real-time transvaginal pelvic ultrasound with image documentation. Transvaginal imaging was used for better evaluation of the endometrium, adnexa, and/or cervix. COMPARISON: CT kidney stone [id number] 12/29/2021 8:41 AM FINDINGS: Uterus:? Status post hysterectomy. Right ovary/adnexa: Normal ovarian blood flow.? There is a complex septated cyst 7.5 cm x 8.8 cm x 8.4 cm.? A 2nd complex septated cyst 11 mm x 11.7 mm x 9.5 mm. ? The right ovary measures 8.2 cm x 10.1 cm x 12.5 cm. Left ovary/adnexa:? Is not visualized. ? Intraperitoneal space:? Moderate volume free fluid collection is seen in the right adnexa are oval US/US transvaginal [id number] IMPRESSION: 1. Complex septated cyst right ovary. 2. Small septated cyst right ovary. 3.? Normal vascular flow right ovary. 4. Status post hysterectomy. 5. Left ovary is not visible. 6. Moderate volume free fluid collection right adnexa? Discharge Plan Discharge Patient Disposition: Home Condition: Stable Prescriptions: New hydrocodone-acetaminophen 5-325 mg tablet 1 tab PO TID PRN (Reason: pain) Qty: 14 0RF Naprosyn 500 mg tablet 500 mg PO BID PRN (Reason: pain) Qty: 20 0RF acetaminophen 325 mg capsule 325 mg PO Q4H PRN (Reason: fever or pain) Qty: 60 0RF ibuprofen 800 mg tablet 800 mg PO TID PRN (Reason: pain) Qty: 60 0RF hydrocodone-acetaminophen 5-325 mg tablet 1 tab PO Q4H PRN (Reason: pain) Qty: 20 0RF Continued cyclobenzaprine 10 mg tablet 10 mg PO BEDTIME PRN (Reason: Spasms) 0RF fluticasone propion-salmeterol [Advair Diskus] 250-50 mcg/dose blister with device 1 ea inhalation BID PRN (Reason: Shortness Of Breath) 0RF albuterol sulfate 2.5 mg /3 mL (0.083 %) solution for nebulization 2.5 mg inhalation Q6H PRN (Reason: Shortness Of Breath) 0RF cetirizine 10 mg Tablet 10 mg PO QAM 0RF sertraline 100 mg tablet 100 mg PO QAM 0RF pantoprazole [Protonix] 40 mg tablet,delayed release (DR/EC) 40 mg PO QAM 0RF albuterol sulfate 90 mcg/actuation HFA aerosol inhaler 2 puff INHALATION Q4H PRN (Reason: Shortness Of Breath) 0RF multivitamin Tablet 1 tab PO BEDTIME 0RF lisinopril 20 mg tablet 20 mg PO QAM 0RF metformin 1,000 mg tablet 1,000 mg PO BID 0RF hydrochlorothiazide 25 mg tablet 25 mg PO QAM 0RF rosuvastatin 10 mg tablet 10 mg PO BEDTIME 0RF Discharge Orders: Discharge Order (Routine); Ordered 01/23/22 Ordered By: Daniel Cadena Referrals: Daniel Cadena MD [Physician] - 2 weeks Gray,SAMANTHA Henriquez [Primary Care Provider] - Discharge Diet: Usual diet Discharge Activity: Limit activity as instructed Patient Instructions: Ovarian Cyst (GEN), Ovarian Cyst Removal (GEN), Exploratory Laparotomy (GEN), OB Discharge Report, Opioid Safety Activity Restrictions/Additional Instructions: 1. Please call [facility] on next working day to make your post-operative appointment in 2 weeks. 2. Please stay home until you come back to the clinic on first post-operative check up. 3. Please follow instructions on your medications CAREFULLY. 4. If you have abdominal incision, do not cover it unless dressing is necessary because of drainage. OK to shower, but avoid bath. Leave steri-strips until they fall off. If they are still on one week after surgery, you may remove them. 5. If you had vaginal surgery or vaginal repair, Dr. Cadena may instruct you to take SITZ bath. 6. Yellow, blood tinged odorous vaginal discharge is usually normal after hysterectomy or vaginal surgeries. 7. No sexual intercourse, tampons, or douches until you are completely released from the post-operative care. 8. Avoid constipation by eating right and maybe using some Metamucil or Milk of Magnesia. 9. All prescription refills are given during the working hours. Please do no wait till it runs out. Call the clinic at [phone] before your medication runs out. The clinic will get in touch with your doctor to prescribe medications if necessary. 10. Please remain within 40 mile radius from our hospital because emergencies do happen now and then during the post-operative period. 11. If you have stairs at home, take one step at a time slowly and minimize the number of trips. It helps to stay in one floor for the next few days. No lifting except what you can lift by one hand until you are released from the post-operative care. 12. Driving is discouraged until you are well healed. It may be 3-4 weeks before you feel strong enough to drive. You should be able to turn and look through the rear window without pain and you should be able to push the brake pedal very hard without pain before you drive. No fast rules, but SAFETY should be your primary concern. DO NOT drive if you are on sedating medications such as narcotics. 13. Call the clinic (during working hours) to make urgent appointment or go to the Emergency room, if any of the following occurs: i. Vaginal bleeding becomes heavy, more than a period. ii. Incision becomes red and sore, or drains pus. iii. Your temperature is over 100.4 or you have chill. iv. IV site becomes red and swollen (a little ``knot?? is usually OK) v. Persistent nausea and vomiting vi. Persistent constipation or diarrhea vii. Rash or allergic reaction to medications. Discharge Attestations COMMUNITY EDUCATOR Time Spent in Discharge Care*: greater than 30 min Coding Level of Care Code Acute Superintendent Maintenance for Conchita Rodriguez Diagnoses Right tubo-ovarian mass N83.8
[2022-01-23 15:46] VITALS: BP 118/72; PULSE 72; RESP 16; TEMP 36.8
== END 2022-01-23 15:46 | disposition home or self-care (01) | DRG 743 ==
LOC: ER 13:05 → OBGYN 13:20
PROVIDERS: Admitting Provider Obstetrics & Gynecology; Emergency Provider Nurse Practitioner Family; PCP Nurse Practitioner Family; Visit Provider Obstetrics & Gynecology
PROC: 0UT00ZZ Resection of Right Ovary, Open Approach (ICD-10-PCS; CPT 49000; principal; 2022-01-21 12:00)
DX: N83.511 Torsion of right ovary and ovarian pedicle (principal); N83.8 Other noninflammatory disorders of ovary, fallopian tube and broad ligament; N83.201 Unspecified ovarian cyst, right side; F32.9 Major depressive disorder, single episode, unspecified; E11.9 Type 2 diabetes mellitus without complications; K21.9 Gastro-esophageal reflux disease without esophagitis; K81.1 Chronic cholecystitis; Z79.84 Long term (current) use of oral hypoglycemic drugs
CPT/HCPCS: 36415; 51702; 76830; 80048; 80053; 81001; 83690; 85025; 85027; 85610; 86304; 88305; 96365; 96366; 96367; 96375; 99285; C9290; J0330; J0694; J1100; J1170; J1885; J2250; J2270; J2405; J2704; J2710; J3010; J3490; J7030; S0030

== ENCOUNTER → 2022-03-06 14:13 | Outpatient (BNVA) | payer OTHER, SELFPAY | PROVIDERS: PCP Nurse Practitioner Family; Visit Provider Obstetrics & Gynecology | DX: R39.89 Other symptoms and signs involving the genitourinary system (principal); Z48.816 Encounter for surgical aftercare following surgery on the genitourinary system | CPT/HCPCS: 81000 ==

== ENCOUNTER 2022-06-06 12:45 | Emergency (ER) | payer OTHER, SELFPAY ==
[2022-06-06 13:06] VITALS: BP 149/91; PULSE 76; RESP 18; TEMP 36.6; O2SAT 96; BMI 51.3
--- NOTE | 2022-06-06 13:12 | ECG_ITS ---
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 Measurements Intervals [place] Rate: 68 P: 70 TX: 158 QRS: 52 QRSD: 109 T: 49 QT: 401 QTc: 429 Interpretive Statements SINUS RHYTHM LOW QRS VOLTAGE IN PRECORDIAL LEADS [QRS DEFLECTION < 1.0 mV IN CHEST LEADS] INCOMPLETE RIGHT BUNDLE BRANCH BLOCK [90+ ms QRS DURATION, TERMINAL R IN V1/V2, 40+ ms S IN I/aVL/V4/V5/V6] INTERPRETATION BASED ON A DEFAULT AGE OF 40 YEARS Compared to ECG 09/04/2019 06:51:46 Low QRS voltage now present Incomplete right bundle-branch block now present Electronically Signed On 06-06-2022 21:13:34 CDT by Marla Reyez M.D. [id number]
[2022-06-06 13:29] LABS: Basophils # 0.1 10^3/uL (0.0-0.1); Basophils % 0.6 %; Eosinophils # 0.5 10^3/uL (0.0-0.8); Eosinophils % 2.7 %; Hematocrit 40.3 % (37.0-47.0); Hemoglobin 13.1 g/dL (11.5-15.3); Lymphocytes # 4.3 10^3/uL (0.8-4.8); Lymphocytes % 23.6 %; Mean Corpuscular HGB Conc 32.5 g/dL (30.0-36.0); Mean Corpuscular Hemoglobin 29.5 pg (28.0-34.0); Mean Corpuscular Volume 90.8 fl (81-99); Mean Platelet Volume 9.8 fL (7.4-10.4); Monocytes # 0.9 10^3/uL (0.2-0.9); Monocytes % 4.8 %; Neutrophils # 12.07 10^3/uL (1.8-7.7); Neutrophils % 67.1 %; Nucleated Red Blood Cells % 0 %; Platelet Count 368 10^3/cmm (130-400); Red Blood Count 4.44 10^6/uL (4.1-5.3); Red Cell Distribution Width 13.5 % (12.1-15.1)
[2022-06-06 13:54] LABS: Alanine Aminotransferase 41 U/L (0-33); Albumin Level 4.1 g/dL (3.5-5.2); Alkaline Phosphatase 96 IU/L (35-105); Anion Gap 16.9 (5-19); Aspartate Amino Transferase 28 U/L (0-32); Blood Urea Nitrogen 9 mg/dL (6-20); Calcium 9.1 mg/dL (8.5-10.5); Carbon Dioxide 26 mmol/L (22-29); Chloride 102 mmol/L (98-107); Globulin 2.6 g/dL (1.3-4.6); Glomerular Filtration Rate 113.8 mL/min (90-130); Glucose 98 mg/dL (65-115); Osmolality Calculated 291 mOsm/kg (285-295); Potassium 3.9 mmol/L (3.5-5.1); Sodium 141 mmol/L (136-145); Total Bilirubin 0.2 mg/dL (0.15-1.2); Total Protein 6.7 g/dL (6.6-8.7)
[2022-06-06 13:55] LABS: Troponin(5th) Baseline 6 ng/L (0-10)
[2022-06-06 14:34] LABS: Slide Review Slide Review Perform
--- NOTE | 2022-06-06 15:13 | ECG_ITS ---
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 Measurements Intervals [place] Rate: 66 P: 71 DC: 164 QRS: 54 QRSD: 116 T: 48 QT: 413 QTc: 436 Interpretive Statements SINUS RHYTHM WITH SINUS ARRHYTHMIA LOW QRS VOLTAGE IN PRECORDIAL LEADS [QRS DEFLECTION < 1.0 mV IN CHEST LEADS] INCOMPLETE RIGHT BUNDLE BRANCH BLOCK [90+ ms QRS DURATION, TERMINAL R IN V1/V2, 40+ ms S IN I/aVL/V4/V5/V6] Compared to ECG 06/06/2022 13:12:47 No significant changes Electronically Signed On 06-07-2022 6:47:10 CDT by Marla Reyez M.D. [email or web address]
--- NOTE | 2022-06-06 16:12 | XRR_ITS ---
PROCEDURE INFORMATION: Exam: XR Chest Exam date and time: 06/06/2022 4:25 PM Age: 36 years old Clinical indication: Pain; Radiating; Patient HX: History--cp that radiates to her left arm, started today in the morning; Additional info: Chest pain TECHNIQUE: Imaging protocol: Radiologic exam of the chest. Views: 1 view. COMPARISON: CT chest w con* [id number] 06/08/2021 8:56 AM FINDINGS: Lungs: Unremarkable. No consolidation. Pleural spaces: Unremarkable. No pleural effusion. No pneumothorax. Heart/Mediastinum: Unremarkable. No cardiomegaly. Bones/joints: Unremarkable. XR/XR chest 1V portable [id number] IMPRESSION: No acute findings.
[2022-06-06 16:35] VITALS: BP 147/87; PULSE 64; RESP 16; O2SAT 97
--- NOTE | 2022-06-06 17:32 | ED_ITS ---
HPI - Chest Pain General: Chief Complaint: Chest Pain Stated Complaint: High blood pressure Time Seen by Provider: 06/06/22 17:05 Source: patient Mode of arrival: ambulatory History of Present Illness: 36-year-old female presents emergency room with complaints of chest discomfort and elevated blood pressure. It began while she was at rest. Patient is diabetic she smokes a history of hypertension hyperlipidemia. Not previously had episodes like this before. Blood pressure at work today was up to as high as 161/106. She states she has a odd feeling in her chest at this point but is not having any specific chest discomfort now. No shortness of breath no diaphoresis. MD complaint: chest heaviness and chest discomfort Timing of current episode: episodic Prior episodes: No Onset: during rest Pain radiation: neck Severity: moderate Quality: heaviness Relieving factors: nothing Exacerbating factors: nothing Associated symptoms: Reports nausea; Deny abdominal pain, diaphoresis, dyspnea, fever(s), leg edema, palpitations, sense of impending doom, syncope or vomiting Review of Systems Const: Denies: fever(s), chills, fatigue, malaise or diaphoresis ENMT: Denies: throat pain, ear or mastoid pain, nasal discharge or nasal congestion Card: Reports: chest pain; Denies: palpitations or syncope Resp: Denies: dyspnea GI: Reports: nausea; Denies: abdominal pain or vomiting : Denies: flank pain, difficulty voiding, dysuria, urinary frequency or urinary urgency Skin/Breast: Denies: rash or pruritus PFS ED PFSH: Medical History (Updated 06/14/22 @ 00:01 by ) Aftercare following surgery of the genitourinary system Depression Diabetes GERD (gastroesophageal reflux disease) Seasonal allergies Surgical History (Updated 02/17/22 @ 11:29 by Daniel Cadena MD) H/O unilateral oophorectomy 01/21/2022- exploratory laparotomy, right oophorectomy performed by Dr. Cadena at [facility] History of esophagogastroduodenoscopy (EGD) (02/14/21) History of laparoscopic appendectomy dr. mederos-[facility] [place] History of surgery PT STATES HAD CYST REMOVED OFF RIGHT OVARY WITH HER APPY SURGERY WITH DR. MEDEROS S/P myringotomy with insertion of tube S/P partial hysterectomy Status post laparoscopic cholecystectomy (02/14/21) Family History (Updated 02/06/22 @ 14:24 by Karmen Marley RN) Father CAD (coronary artery disease) Diabetes Hyperlipidemia Hypertension Bleeding disorder Grandmother Stroke paternal Family/Other Heart disease paternal uncles x6 Denies family history of Colon cancer Ovarian cancer Breast cancer Anesthesia complication Cancer Uterine cancer Thyroid disease Physical Exam Const: GENERAL APPEARANCE: cooperative and comfortable ORIENTATION/CONSCIOUSNESS: Yes awake, Yes oriented to person, Yes oriented to place and Yes oriented to time HENMT: COMMON NORMALS: normocephalic, atraumatic and hearing grossly normal bilaterally HEAD & SCALP: normocephalic and atraumatic Resp: COMMON NORMALS: normal respiratory effort, No retractions, No use of accessory muscles and clear to auscultation bilaterally AUSCULTATION: clear to auscultation bilaterally Cardio: COMMON NORMALS: regular rate, regular rhythm and No murmurs present (Cardio) RATE: regular rate RHYTHM: regular rhythm GI: COMMON NORMALS: Soft to palpation and No hepatosplenomegaly present AUSCULTATION: Yes normoactive bowel sounds PALPATION: Yes Soft to palpation, No Tenderness to palpation present (GI), No Guarding due to palpation present (GI) and Yes No hepatosplenomegaly present Extremity: COMMON NORMALS: normal to inspection, capillary refill normal, no c lubbing, cyanosis or edema, no calf tenderness and no pedal edema Neuro: SENSORIUM/ORIENTATION: Yes oriented to person, Yes oriented to place and Yes oriented to time Skin: COMMON NORMALS: no rashes or lesions noted GENERAL SKIN EXAM: no rashes or lesions noted Course Vital Signs: Vital signs: Vital Signs Temperature 97.5 F L 06/06/22 18:14 Pulse Rate 72 06/06/22 18:14 Respiratory Rate 18 06/06/22 18:14 Blood Pressure 138/76 06/06/22 18:14 Pulse Oximetry 98 06/06/22 18:14 Oxygen Delivery Me thod 06/06/22 18:13 MDM - Chest Pain Medical Decision Making Stop hydrochlorothiazide add isosorbide mononitrate and aspirin we will set up for outpatient Lexiscan sestamibi stress test. Labs and imaging and EKGs reviewed as found in the chart. No acute EKG findings. Medical Records I reviewed the patient's medical records. Lab Data I reviewed the patient's lab results. : 06/06/22 13:20 06/06/22 13:20 Radiology Impressions Chest X-Ray 06/06/22 16:12 IMPRESSION: No acute findings. Laboratory Results WBC 18.0 10^3/uL (4.0-10.0) H 06/06/22 13:20 RBC 4.44 10^6/uL (4.1-5.3) 06/06/22 13:20 Hgb 13.1 g/dL (11.5-15.3) 06/06/22 13:20 Hct 40.3 % (37.0-47.0) 06/06/22 13:20 MCV 90.8 fl (81-99) 06/06/22 13:20 MCH 29.5 pg (28.0-34.0) 06/06/22 13:20 MCHC 32.5 g/dL (30.0-36.0) 06/06/22 13:20 RDW 13.5 % (12.1-15.1) 06/06/22 13:20 Plt Count 368 10^3/cmm (130-400) 06/06/22 13:20 MPV 9.8 fL (7.4-10.4) 06/06/22 13:20 Neut % (Auto) 67.1 % 06/06/22 13:20 Lymph % (Auto) 23.6 % 06/06/22 13:20 Wilkinson % (Auto) 4.8 % 06/06/22 13:20 Eos % (Auto) 2.7 % 06/06/22 13:20 Baso % (Auto) 0.6 % 06/06/22 13:20 Neut # (Auto) 12.07 10^3/uL (1.8-7.7) H 06/06/22 13:20 Lymph # (Auto) 4.3 10^3/uL (0.8-4.8) 06/06/22 13:20 Wilkinson # (Auto) 0.9 10^3/uL (0.2-0.9) 06/06/22 13:20 Eos # (Auto) 0.5 10^3/uL (0.0-0.8) 06/06/22 13:20 Baso # (Auto) 0.1 10^3/uL (0.0-0.1) 06/06/22 13:20 Nucleated RBC % (auto) 0 % 06/06/22 13:20 Nucleated RBCs # 0.0 /100WBC 06/06/22 13:20 Sodium 141 mmol/L (136-145) 06/06/22 13:20 Potassium 3.9 mmol/L (3.5-5.1) 06/06/22 13:20 Chloride 102 mmol/L (98-107) 06/06/22 13:20 Carbon Dioxide 26 mmol/L (22-29) 06/06/22 13:20 Anion Gap 16.9 (5-19) 06/06/22 13:20 BUN 9 mg/dL (6-20) 06/06/22 13:20 Creatinine 0.6 mg/dL (0.5-0.9) 06/06/22 13:20 GFR Calculation 113.8 mL/min (90-130) 06/06/22 13:20 Glucose 98 mg/dL (65-115) 06/06/22 13:20 Calculated Osmolality 291 mOsm/kg (285-295) 06/06/22 13:20 Calcium 9.1 mg/dL (8.5-10.5) 06/06/22 13:20 Total Bilirubin 0.2 mg/dL (0.15-1.2) 06/06/22 13:20 AST 28 U/L (0-32) 06/06/22 13:20 ALT 41 U/L (0-33) H 06/06/22 13:20 Alkaline Phosphatase 96 IU/L (35-105) 06/06/22 13:20 Troponin T Baseline 6 ng/L (0-10) 06/06/22 13:20 Troponin T 120 Minute 6.00 ng/L (0-10) 06/06/22 16:14 Delta Troponin T 0 ABS# (0-10) 06/06/22 16:14 Total Protein 6.7 g/dL (6.6-8.7) 06/06/22 13:20 Albumin 4.1 g/dL (3.5-5.2) 06/06/22 13:20 Globulin 2.6 g/dL (1.3-4.6) 06/06/22 13:20 Discharge Plan Discharge Patient Disposition: Home Clinical Impression: Atypical chest pain Condition: Stable Prescriptions: New aspirin 81 mg tablet,delayed release (DR/EC) 81 mg PO DAILY Qty: 30 0RF isosorbide mononitrate 30 mg tablet extended release 24 hr 30 mg PO DAILY Qty: 30 0RF Held hydrochlorothiazide 25 mg tablet 25 mg PO QAM Hold Instructions: Resume on 06/20/22. No Action Bacillus coagulans [Probiotic (B. coagulans)] PO BID cyclobenzaprine 10 mg tablet 10 mg PO BEDTIME PRN (Reason: Spasms) fluticasone propion-salmeterol [Advair Diskus] 250-50 mcg/dose blister with device 1 ea inhalation BID PRN (Reason: Shortness Of Breath) albuterol sulfate 2.5 mg /3 mL (0.083 %) solution for nebulization 2.5 mg inhalation Q6H PRN (Reason: Shortness Of Breath) cetirizine 10 mg Tablet 10 mg PO QAM sertraline 100 mg tablet 100 mg PO QAM pantoprazole [Protonix] 40 mg tablet,delayed release (DR/EC) 40 mg PO QAM albuterol sulfate 90 mcg/actuation HFA aerosol inhaler 2 puff INHALATION Q4H PRN (Reason: Shortness Of Breath) Naprosyn 500 mg tablet 500 mg PO BID PRN (Reason: pain) Qty: 20 0RF multivitamin Tablet 1 tab PO BEDTIME lisinopril 20 mg tablet 20 mg PO QAM metformin 1,000 mg tablet 1,000 mg PO BID rosuvastatin 10 mg tablet 10 mg PO BEDTIME acetaminophen 325 mg capsule 325 mg PO Q4H PRN (Reason: fever or pain) Qty: 60 0RF ibuprofen 800 mg tablet 800 mg PO TID PRN (Reason: pain) Qty: 60 0RF Discharge Orders: Discharge ED (Routine); Ordered 06/06/22 Ordered By: Naseem Campoverde Referrals: Gray,[place], CHAR FILTER OPERATOR HELPER [Primary Care Provider] - Discharge Diet: Usual diet Discharge Activity: Resume usual activity Patient Instructions: Opioid Safety Activity Restrictions/Additional Instructions: Hold hydrochlorothiazide start baby aspirin and isosorbide mononitrate daily. wind field manager will call make arrangements for you to have an outpatient Lexiscan sestamibi stress test. Coding Level of Care Code ED Hand Worker for Conchita Rodriguez
[2022-06-06 17:33] LABS: Troponin 5 2HR Delta 0 ABS# (0-10)
[2022-06-06 18:13] VITALS: BP 138/76; PULSE 72; RESP 18; TEMP 36.4; O2SAT 98
[2022-06-06 18:14] VITALS: BP 138/76; PULSE 72; RESP 18; TEMP 36.4; O2SAT 98
--- NOTE | 2022-06-16 11:25 | DCPLANNER ---
Addendum entered by Kathleen Condon 07/28/22 12:30: Patient had an outpatient stress test - patient did attend appointment. Original Note: piping manager had message to schedule an outpatient stress test for patient. piping manager faxed signed order to centralized scheduling, who will call patient with appointment information.
== END 2022-06-06 18:16 | disposition home or self-care (01) ==
PROVIDERS: Emergency Provider Family Medicine; PCP Nurse Practitioner Family
DX: R07.89 Other chest pain (principal); Z79.84 Long term (current) use of oral hypoglycemic drugs; E11.9 Type 2 diabetes mellitus without complications
CPT/HCPCS: 36415; 71045; 80053; 84484; 85025; 93005; 99285

== ENCOUNTER 2022-07-04 14:03 | Outpatient (CLI) | payer OTHER, SELFPAY ==
--- NOTE | 2022-07-04 14:22 | CT_ITS ---
WS: [id number] CT SINUSES TECHNIQUE: Noncontrast CT of the paranasal sinuses with coronal and sagittal reformatted images. CLINICAL INFORMATION: ALLERGIC RHINITIS COMPARISON: None. DLP: 349.[address] scans at [facility] use at least one of these dose optimization techniques: automated e xposure control; mA and/or kV adjustment per patient size (includes targeted exams where dose is matc hed to clinical indication); or iterative reconstruction. FINDINGS: Moderate RIGHT to LEFT nasal septal deviation measuring 8 mm. Paranasal sinuses are well aerated. Fro ntal sinuses and maxillary sinuses well aerated. Sphenoid sinuses are well aerated. RIGHT oswald bull neris. Retention cyst LEFT maxillary sinus measuring 12 x 13 mm. Mild mucosal thickening RIGHT mastoid air cells. Opacification LEFT mastoid air cells with opacification of the mastoid antrum. Normal parapharyngeal fat. Normal posterior nasopharynx. CT/CT sinus wo con* [id number] IMPRESSION: 1. Moderate RIGHT to LEFT nasal deviation measuring 8 mm. 2. Paranasal sinuses are well aerated. 3. LEFT maxillary retention cyst measuring 12 x 13 mm. 4. Mild mucosal thickening RIGHT mastoid air cells. Opacification of the LEFT mastoid air cells. 5. Normal visualized posterior nasopharynx.
== END 2022-07-04 14:04 | disposition home or self-care (01) ==
PROVIDERS: PCP Nurse Practitioner Family; Visit Provider Nurse Practitioner Family
DX: J30.9 Allergic rhinitis, unspecified (principal); J34.2 Deviated nasal septum; M27.40 Unspecified cyst of jaw
CPT/HCPCS: 70486

== ENCOUNTER 2022-07-18 06:43 | Outpatient (CLI) | payer OTHER, SELFPAY ==
--- NOTE | 2022-07-18 | ECG_ITS ---
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 Interpretive Statements NAME OF STUDY: LEXISCAN SESTAMIBI STRESS TEST INDICATION: Atypical Chest Pain PROCEDURE: At the baseline, the blood pressure was 129/74 mmHg with a heart rate of 68 bpm. The electrocardiogram showed normal sinus rhythm, normal axis. Incomplete right bundle branch block. The Lexiscan was infused over a period of 20 seconds. A total of 0.4 milligrams of Lexiscan was infused. The stress phase was continued for a total of 5 minutes. Heart rate at the end of the stress phase was 65 bpm with a blood pressure of 125/86 mmHg. The EKG at the peak infusion revealed sinus rhythm with no significant ST-T wave changes. The study was terminated due to protocol completion. Sestamibi was injected 20 seconds after the Lexiscan infusion. Blood pressure at the end of the recovery phase was 123/86 mmHg with a heart rate of 67 beats per minute. CONCLUSION: 1. Normal EKG response to LexiScan infusion. 2. No LexiScan induced chest pain or cardiac arrhythmia. 3. Normal blood pressure and heart rate response. 4. Sestamibi/sestamibi perfusion scan pending; see separate report. RESULTS TO KIRK EAGLE Electronically Signed On 07-19-2022 15:44:18 CDT by Amelia Mcnamara M.D. [id number]
[2022-07-18 06:59] VITALS: BMI 50.8
--- NOTE | 2022-07-18 07:00 | NMCV_ITS ---
NM manas perf SPECT r/s* [id number] ShaPrerna Age: 37 Gender: F : 1985 Exam Date: 07/18/2022 08:32 Ordering Phys: Naseem Campoverde DO Technologist: ALEKSEY Parry Exam Location: [facility] Indications: ATYPICAL CHEST PAIN STRESS TEST Please see separate stress test report in [facility] for full findings IMAGE PROTOCOL Rest/Stress 1 Lexiscan Day Radiopharmaceutical Dose (mCi) Administration Site Administered by Rest: Tc-99m 10.8 IV ALEKSEY Castro Sestamibi Stress:Tc-99m 33.0 IV ALEKSEY Castro Sestamibi Rest: 18-Jul-2022 60 Discovery 630 Stress: 18-Jul-2022 30 Discovery 630 0.4mg Lexiscan. Images obtained in supine and prone position. SPECT RESULTS Technical Quality: Good Raw Data Analysis: Breast attenuation Image Corrections: No attenuation or motion correction applied Summed Stress Score: 0 Summed Rest Score: 0 Summed Difference Score: 0 PERFUSION FINDINGS SPECT images demonstrate homogeneous tracer distribution throughout the myocardium. FUNCTIONAL RESULTS (calculated via Gated SPECT) Stress Image LV EF (%): 66 Stress EDV (mL):166 TID: 1.14 Stress ESV (mL):57 FUNCTIONAL FINDINGS: The left ventricle is normal in size. Transient Ischemia Dilatation of 1.1. There is normal left ventricular systolic function. The left ventricular ejection fraction is normal with a value of 66%. There is normal left ventricular wall thickening. IMPRESSIONS 1. Myocardial perfusion imaging is normal. 2. Overall left ventricular systolic function is normal without regional wall motion abnormalities, LVEF=66%. 3. No EKG changes with Lexiscan infusion. Refer to separate report for details. Amelia Mcnamara MD (Electronically Signed) Final Date: 19 July 2022 15:44 S
[2022-07-18] MEDS: regadenoson 0.4 Mg/5 ml Syringe IVP (09:08)
[2022-07-18 09:20] VITALS: BP 123/86; PULSE 68
== END 2022-07-18 06:44 | disposition home or self-care (01) ==
LOC: CDL 06:47
PROVIDERS: PCP Nurse Practitioner Family; Visit Provider Family Medicine
DX: R07.89 Other chest pain (principal)
CPT/HCPCS: 78452; 93017; A9500; J2785

== ENCOUNTER 2022-11-14 14:45 | Outpatient (CLI) | payer OTHER, SELFPAY ==
--- NOTE | 2022-11-14 14:56 | XRR_ITS ---
PROCEDURE INFORMATION: Exam: XR Chest Exam date and time: 11/14/2022 3:01 PM Age: 37 years old Clinical indication: Wheezing TECHNIQUE: Imaging protocol: Radiologic exam of the chest. Views: 2 views. COMPARISON: CR XR chest 1V portable [id number] 06/06/2022 4:25 PM FINDINGS: Lungs: Unremarkable. No consolidation. Pleural spaces: Unremarkable. No pleural effusion. No pneumothorax. Heart/Mediastinum: Unremarkable. No cardiomegaly. Bones/joints: Unremarkable for age. XR/XR chest 2V* [id number] IMPRESSION: Negative chest
== END 2022-11-14 14:46 | disposition home or self-care (01) ==
LOC: RAD 14:49
PROVIDERS: PCP Nurse Practitioner Family; Visit Provider Nurse Practitioner Family
DX: R06.2 Wheezing (principal)
CPT/HCPCS: 71046

== ENCOUNTER → 2023-04-04 08:19 | Outpatient (BNVA) | payer OTHER, SELFPAY | PROVIDERS: PCP Nurse Practitioner Family; Visit Provider Obstetrics & Gynecology | DX: R10.2 Pelvic and perineal pain (principal) | CPT/HCPCS: 76830 ==

== ENCOUNTER 2023-05-09 08:13 | Day surgery (SDC) | payer OTHER, SELFPAY ==
[2023-05-07 12:46] VITALS: BMI 51.6
--- NOTE | 2023-05-07 13:11 | ANES.PREANE2 ---
Pre-Anesthetic Assessment Height/Weight: Height 1.68 m Weight 145.15 kg Operation Date: 05/09/23 10:05 Proposed Procedures p [Diagnostic laparoscopy 11452]. [Diagnostic laparoscopy 47727](Not Applicable) - Daniel Cadena MD Familial anesthetic complications: none Was Beta Edmond taken within 24 hours: N/A Was Clonidine taken within 24 hours: N/A Social Tobacco and No alcohol Exam alert, oriented x 3 and regular rate & rhythm Airway Submandibular: within normal limits Cervical ROM: within normal limits Mallampati: Class II Dentition: caps Pulmonary Chronic Obstructive Pulmonary Disease CV/HEM Hypertension GI Gastroesophageal Reflux Disease Metabolic Diabetes Mellitus, Hyperlipidemia and Morbid Obesity Neuropsych Anxiety and Depression Anesthetic Plan ASA status: 3 Anesthesia: General Medications/Allergies Home Medications Medication Instructions Recorded Confirmed Last Taken Type albuterol sulfate 2.5 mg/3 mL 2.5 mg inhalation Q6H PRN 01/07/21 05/07/23 Unknown History (0.083 %) solution for nebulization Shortness Of Breath albuterol sulfate 90 mcg/actuation 2 puff inhalation Q4H PRN 01/07/21 05/07/23 02/09/21 History aerosol inhaler Shortness Of Breath fluticasone 250 mcg-salmeterol 50 1 ea inhalation BID PRN Shortness 01/07/21 05/07/23 Unknown History mcg/dose blistr powdr for Of Breath inhalation (Advair Diskus) hydrochlorothiazide 25 mg tablet 25 mg PO QAM 01/19/22 05/07/23 05/07/23 History lisinopril 20 mg tablet 20 mg PO QAM 01/19/22 05/07/23 05/07/23 History metformin 1,000 mg tablet 500 mg PO BID 01/19/22 05/07/23 05/07/23 History multivitamin 1 tab PO BEDTIME 01/19/22 05/07/23 05/07/23 History rosuvastatin 10 mg tablet 10 mg PO BEDTIME 01/19/22 05/07/23 05/06/23 History aspirin 81 mg tablet,delayed 81 mg PO DAILY #30 tabs 06/06/22 05/07/23 05/07/23 Rx release ofloxacin 0.3 % eye drops 2 drp otic (ear) ONCE PRN Tubes in 01/29/23 05/07/23 05/07/23 Rx tympanic membranes #10 mL fluoxetine 40 mg capsule 40 mg PO DAILY 04/06/23 05/07/23 05/07/23 History semaglutide 0.25 mg or 0.5 mg (2 0.25 mg SUBCUT DIRECTED 04/06/23 05/07/23 05/01/23 History mg/3 mL) subcutaneous pen injector ([facility]) isosorbide mononitrate 30 mg 30 mg PO BEDTIME 05/07/23 05/07/23 05/06/23 History tablet,extended release 24 hr Allergies Allergy/AdvReac Type Severity Reaction Status Date / Time No Known Allergies Allergy Verified 05/07/23 08:38 [facility] Anesthesia Medical History Aftercare following surgery of the genitourinary system Depression Diabetes GERD (gastroesophageal reflux disease) Seasonal allergies Surgical History H/O unilateral oophorectomy 01/21/2022- exploratory laparotomy, right oophorectomy performed by Dr. Cadena at [facility] History of esophagogastroduodenoscopy (EGD) (02/14/21) History of laparoscopic appendectomy dr. mederos-[facility] [place] History of myringotomy History of surgery PT STATES HAD CYST REMOVED OFF RIGHT OVARY WITH HER APPY SURGERY WITH DR. MEDEROS S/P myringotomy with insertion of tube S/P partial hysterectomy Status post laparoscopic cholecystectomy (02/14/21) Family History Father CAD (coronary artery disease) Diabetes Hyperlipidemia Hypertension Bleeding disorder Grandmother Stroke paternal Family/Other Heart disease paternal uncles x6 Denies family history of Colon cancer Ovarian cancer Breast cancer Anesthesia complication Cancer Uterine cancer Thyroid disease Social History Smoking and tobacco status: current every day smoker (pack and a half) Data Anesthesia Cardiac Studies: Sestamibi Stress Test (Cardiology) 07/18/22
[2023-05-07 13:18] LABS: Basophils # 0.2 10^3/uL (0.0-0.1); Basophils % 0.8 %; Eosinophils # 0.5 10^3/uL (0.0-0.8); Eosinophils % 2.2 %; Hematocrit 46.3 % (37.0-47.0); Hemoglobin 14.9 g/dL (11.5-15.3); Lymphocytes # 4.8 10^3/uL (0.8-4.8); Lymphocytes % 23.2 %; Mean Corpuscular HGB Conc 32.2 g/dL (30.0-36.0); Mean Corpuscular Hemoglobin 29.1 pg (28.0-34.0); Mean Corpuscular Volume 90.4 fl (81-99); Mean Platelet Volume 9.9 fL (7.4-10.4); Monocytes % 4.6 %; Neutrophils # 13.83 10^3/uL (1.8-7.7); Neutrophils % 67.4 %; Nucleated Red Blood Cells % 0 %; Platelet Count 416 10^3/cmm (130-400); Red Blood Count 5.12 10^6/uL (4.1-5.3); Red Cell Distribution Width 13.5 % (12.1-15.1); White Blood Count 20.5 10^3/uL (4.0-10.0)
[2023-05-07 13:21] LABS: OR HCG Qualitative Urine Negative (Negative)
[2023-05-07 13:25] LABS: Blood Urine Neg (Negative); Glucose Urine UA Norm (Normal); Ketones Urine Negative (Negative); Nitrate Urine Negative (Negative); Protein Urine 1+ (Negative); Specific Gravity, Urine 1.025 (1.005-1.030); Urine Appearance Clear (CLEAR); Urine Color Yellow (Yellow); pH Urine 5 (5-7)
[2023-05-07 13:26] LABS: Add Urine Culture? No; Add Urine Microscopic? YES; Bacteria Urine TRACE /hpf; Bilirubin Urine 1+ (Negative); Leukocyte Esterase Urine Trace (Negative); Mucus Urine 2+ /hpf; Urobilinogen Urine 1 mg/dL (Negative); WBC Urine 0-4 /hpf (0-5)
[2023-05-07 13:40] LABS: Slide Review Slide Review Perform
[2023-05-07 13:42] LABS: Alanine Aminotransferase 56 U/L (0-33); Albumin Level 4.3 g/dL (3.5-5.2); Alkaline Phosphatase 100 U/L (35-105); Anion Gap 15.1 (5-19); Aspartate Amino Transferase 34 U/L (0-32); Blood Urea Nitrogen 8 mg/dL (6-20); Calcium 9.4 mg/dL (8.5-10.5); Carbon Dioxide 24 mmol/L (22-29); Chloride 97 mmol/L (98-107); Glomerular Filtration Rate 113.1 mL/min (90-130); Glucose 118 mg/dL (65-115); Osmolality Calculated 273 mOsm/kg (285-295); Potassium 4.1 mmol/L (3.5-5.1); Sodium 132 mmol/L (136-145); Total Bilirubin 0.3 mg/dL (0.15-1.2); Total Protein 7.3 g/dL (6.6-8.7)
[2023-05-09] VITALS (9 sets, daily range): BP systolic 115–151; BP diastolic 78–99; PULSE 77–117; RESP 18–22; TEMP 36.2–37; O2SAT 90–96
[2023-05-09 08:42] LABS: Glucose Point of Care 183 mg/dL (70-110)
[2023-05-09] MEDS: sodium chloride 0.9% 500 ML IV (08:42)
[2023-05-09] MEDS: sodium chloride 0.9% 1,000 ML 30 ML IV (08:43)
--- NOTE | 2023-05-09 09:13 | ANES.PAUD2 ---
Pre-Anesthetic Update Pre-Anesthetic Assessment: Date of Surgery/Procedure: 05/09/23 Preop Diagnosis: chronic pelvic pain Proposed Procedure: Operation Date: 05/09/23 10:05 Proposed Procedures p [Diagnostic laparoscopy 45427]. [Diagnostic laparoscopy 78275](Not Applicable) - Daniel Cadena MD Any changes to Pre-Anesthetic Assessment?: No Last Intake: Intake Last Liquid Date 05/08/23 Last Liquid Time 23:00 Last Solid Date 05/08/23 Last Solid Time 21:30 Labs Last 48hrs: Short CBC 05/07/23 Range/Units 12:55 WBC 20.5 H (4.0-10.0) 10^3/ uL Hgb 14.9 (11.5-15.3) g/dL Hct 46.3 (37.0-47.0) % MCV 90.4 (81-99) fl Plt Count 416 H (130-400) 10^3/c mm Neut % (Auto) 67.4 % Neut # (Auto) 13.83 H (1.8-7.7) 10^3/u L BMP 05/07/23 12:55 Sodium 132 L Potassium 4.1 Chloride 97 L Carbon Dioxide 24 BUN 8 Creatinine 0.6 Glucose 118 H Calcium 9.4 Liver Function 05/07/23 Range/Units 12:55 Total Bilirubin 0.3 (0.15-1.2) mg/dL AST 34 H (0-32) U/L ALT 56 H (0-33) U/L Alkaline Phosphata se 100 (35-105) U/L Albumin 4.3 (3.5-5.2) g/dL Urine 05/07/23 Range/Units 13:00 Urine Color Yellow (Yellow) Urine Appearance Clear (CLEAR) Urine pH 5 (5-7) Ur Specific Gravit y 1.025 (1.005-1.030) Urine Protein 1+ H (Negative) Urine Glucose (UA) Norm (Normal) Urine Ketones Negative (Negative) Urine Nitrate Negative (Negative) Urine Bilirubin 1+ H (Negative) Ur Leukocyte Estephania ase Trace H (Negative) Urine RBC None (0-2) /hpf Urine WBC 0-4 H (0-5) /hpf Blood Bank 05/07/23 12:55 Blood Type O Negative Rho(D) Type Negative Antibody Screen Negative Vitals: Temperature 97.8 F 05/09/23 08:30 Temperature Source Temporal Artery S can 05/09/23 08:30 Pulse Rate 86 05/09/23 08:30 Respiratory Rate 18 05/09/23 08:30 Blood Pressure 151/97 05/09/23 08:30 Blood Pressure Gracie n 115 05/09/23 08:30 Pulse Oximetry 95 05/09/23 08:30 Oxygen Delivery Me thod Room Air 05/09/23 08:43 Exam: Pre-Anes Outpt Exam: alert, oriented x 3, clear to auscultation bilaterally and regular rate & rhythm Cardiac Studies: Sestamibi Stress Test (Cardiology) 07/18/22
--- NOTE | 2023-05-09 10:11 | W.PM.OPSUD ---
Surgery/Procedure H&P Update DATE OF PROCEDURE: May 09, 2023 DATE H&P PERFORMED: 05/01/23 H&P UPDATE INFORMATION: I have reviewed H&P completed within last 30 days, I have examined patient prior to procedure and No changes to prior documentation PREOP DIAGNOSIS: chronic pelvic pain PLANNED PROCEDURE: Operation Date: 05/09/23 10:05 Proposed Procedures p [Diagnostic laparoscopy 45057]. [Diagnostic laparoscopy 72307](Not Applicable) - Daniel Cadena MD
[2023-05-09] MEDS: ceFAZolin 3,000 MG in sodium chloride 0.9% (100 ml) 100 ML 200 MG IV (10:19)
--- NOTE | 2023-05-09 10:50 | PM.OP ---
Operative Report Date of procedure: May 09, 2023 Pre-op diagnosis: Preop Diagnosis chronic pelvic pain Post-op diagnosis: Same as above. Boil in the right lower quadrant with surrounding cellulitis Procedure done: boil Culture Surgeon: Daniel Cadena MD Estimated blood loss: less than 1 ml Findings: Diagnostic laparoscopy postponed due to findings during preop of right lower quadrant boil with surrounding cellulitis. Procedure: After informed consent, the patient was taken to the operating room where general anesthesia was administered. She was placed in the dorsal lithotomy position and prepped and draped in sterile fashion. During preparation of the patient and infected with cellulitis right lower quadrant boil was noted. A small incision mas made on the Boil and it was cultured. Then the decision to postpone surgery was made until infection is cleared. The patient tolerated the procedure well, and sponge, lap and needle count were correct times two. The patient taken to the recovery room in good condition.
--- NOTE | 2023-05-09 16:37 | ANE.PACU2 ---
Inpatient post-anesthesia follow up: Airway intact: Yes Vital signs: Temperature 97.7 F Pulse Rate 87 Respiratory Rate 18 Blood Pressure 131/99 Pulse Oximetry 93 Oxygen Delivery Me thod Room Air Oxygen Flow Rate 2 Fraction of Inspir ed Oxygen Hydration adequate: Yes Nausea and vomiting: No Pain level: 1 Mental status: Baseline Additional Comments: Case aborted b/c of lesion on skin.
== END 2023-05-09 11:55 | disposition home or self-care (01) ==
PROVIDERS: PCP Nurse Practitioner Family; Visit Provider Obstetrics & Gynecology
PROC: (CPT 10140; principal; 2023-05-09 09:55)
DX: R10.2 Pelvic and perineal pain (principal); G89.29 Other chronic pain; J44.9 Chronic obstructive pulmonary disease, unspecified; I10 Essential (primary) hypertension; K21.9 Gastro-esophageal reflux disease without esophagitis; E11.9 Type 2 diabetes mellitus without complications; E78.5 Hyperlipidemia, unspecified; E66.01 Morbid (severe) obesity due to excess calories; Z68.43 Body mass index [BMI] 50.0-59.9, adult; Z79.84 Long term (current) use of oral hypoglycemic drugs; Z79.82 Long term (current) use of aspirin; F41.9 Anxiety disorder, unspecified; F32.A Depression, unspecified; Z53.29 Procedure and treatment not carried out because of patient's decision for other reasons; Z53.09 Procedure and treatment not carried out because of other contraindication; L03.311 Cellulitis of abdominal wall; B96.89 Other specified bacterial agents as the cause of diseases classified elsewhere
CPT/HCPCS: 10140; 36415; 36416; 80053; 81001; 81025; 82962; 84703; 85025; 86850; 86900; 87070; 87075; 87077; 87205; J0131; J0690; J1100; J1200; J1885; J2250; J2405; J2704; J3010; J3490; J7030; J7040

== ENCOUNTER 2023-05-17 07:37 | Outpatient (CLI) | payer OTHER, SELFPAY ==
--- NOTE | 2023-05-17 07:45 | US_ITS ---
WS: [id number] Right upper quadrant ultrasound, 05/17/2023 Clinical Data: FATTY (CHANGE OF) LIVER Comparison: Gallbladder and right upper quadrant ultrasound, 01/07/2021 Findings: The gallbladder is absent. The common bile duct is 0.3 cm and there are no intrahepatic ductal abnorm alities. Liver shows no cysts, masses or dilated intrahepatic ducts. There is fatty infiltration with hepatome jovanna, and the liver measures 21.03 cm. The portal vein shows normal flow. The pancreas is not obscured by overlying bowel gas and no cyst, pseudocyst, or evidence of pancreati tis is noted. Right kidney measures 12.9 cm and no cyst, masses or hydronephrosis can be seen. The aorta and inferior vena cava show no vascular abnormalities. US/US abdomen limited [id number] Impression: 1. Absent gallbladder. 2. Hepatomegaly with fatty infiltration of the liver.
== END 2023-05-17 07:38 | disposition home or self-care (01) ==
PROVIDERS: PCP Nurse Practitioner Family; Visit Provider Nurse Practitioner Family
DX: K76.0 Fatty (change of) liver, not elsewhere classified (principal)
CPT/HCPCS: 76705

== ENCOUNTER 2023-06-19 09:31 | Day surgery (SDC) | payer OTHER, SELFPAY ==
[2023-06-15 09:37] VITALS: BMI 51.6
[2023-06-15 09:54] LABS: Add Urine Microscopic? NO; Charge for UA Resulting for Rev
[2023-06-15 09:59] LABS: Bilirubin Urine Neg (Negative); Blood Urine Neg (Negative); Glucose Urine UA Norm (Normal); Ketones Urine Negative (Negative); Leukocyte Esterase Urine Negative (Negative); Nitrate Urine Negative (Negative); Protein Urine Neg (Negative); Urine Appearance Clear (CLEAR); Urine Color Yellow (Yellow); Urobilinogen Urine Norm (Negative); pH Urine 5 (5-7)
[2023-06-15 09:59] LABS: Basophils # 0.1 10^3/uL (0.0-0.1); Basophils % 0.6 %; Eosinophils # 0.4 10^3/uL (0.0-0.8); Eosinophils % 2.2 %; Hemoglobin 14.5 g/dL (11.5-15.3); Lymphocytes # 3.2 10^3/uL (0.8-4.8); Lymphocytes % 18.6 %; Mean Corpuscular HGB Conc 32.2 g/dL (30.0-36.0); Mean Corpuscular Hemoglobin 29.4 pg (28.0-34.0); Mean Corpuscular Volume 91.1 fl (81-99); Mean Platelet Volume 9.8 fL (7.4-10.4); Monocytes # 0.8 10^3/uL (0.2-0.9); Monocytes % 4.4 %; Neutrophils # 12.31 10^3/uL (1.8-7.7); Neutrophils % 72.5 %; Nucleated Red Blood Cells % 0 %; Platelet Count 332 10^3/cmm (130-400); Red Blood Count 4.94 10^6/uL (4.1-5.3); Red Cell Distribution Width 14.5 % (12.1-15.1)
--- NOTE | 2023-06-15 10:16 | ANES.PREANE2 ---
Pre-Anesthetic Assessment Height/Weight: Height 1.68 m Weight 145.15 kg Preop Diagnosis: chronic pelvic pain Operation Date: 06/19/23 13:10 Proposed Procedures p Diagnostic laparoscopy 89451, R10.2(Not Applicable) - Daniel Cadena MD Familial anesthetic complications: muscle aches after last procedure - most likely due to succinylcholine adminstration Social Tobacco and No alcohol Exam alert, oriented x 3, clear to auscultation bilaterally and regular rate & rhythm Airway Mallampati: Class II Dentition: chipped and full CV/HEM Hypertension GI Gastroesophageal Reflux Disease Metabolic Diabetes Mellitus and Morbid Obesity Anesthetic Plan ASA status: 3 Anesthesia: General Risk of > 500 ml blood loss (7ml/kg in children): No Medications/Allergies Home Medications Medication Instructions Recorded Confirmed Last Taken Type albuterol sulfate 2.5 mg/3 mL 2.5 mg inhalation Q6H PRN 01/07/21 06/15/23 Unknown History (0.083 %) solution for nebulization Shortness Of Breath albuterol sulfate 90 mcg/actuation 2 puff inhalation Q4H PRN 01/07/21 06/15/23 02/09/21 History aerosol inhaler Shortness Of Breath fluticasone 250 mcg-salmeterol 50 1 ea inhalation BID PRN Shortness 01/07/21 06/15/23 Unknown History mcg/dose blistr powdr for Of Breath inhalation (Advair Diskus) hydrochlorothiazide 25 mg tablet 25 mg PO QAM 01/19/22 06/15/23 06/15/23 History lisinopril 20 mg tablet 20 mg PO QAM 01/19/22 06/15/23 06/15/23 History metformin 1,000 mg tablet 500 mg PO BID 01/19/22 06/15/23 06/15/23 History multivitamin 1 tab PO BEDTIME 01/19/22 06/15/23 06/15/23 History rosuvastatin 10 mg tablet 10 mg PO BEDTIME 01/19/22 06/15/23 06/15/23 History aspirin 81 mg tablet,delayed 81 mg PO DAILY #30 tabs 06/06/22 06/15/23 06/15/23 Rx release ofloxacin 0.3 % eye drops 2 drp otic (ear) ONCE PRN Tubes in 01/29/23 06/15/23 06/15/23 Rx tympanic membranes #10 mL fluoxetine 40 mg capsule 40 mg PO DAILY 04/06/23 06/15/23 06/15/23 History semaglutide 0.25 mg or 0.5 mg (2 0.25 mg SUBCUT DIRECTED 04/06/23 06/15/23 06/05/23 History mg/3 mL) subcutaneous pen injector ([facility]) isosorbide mononitrate 30 mg 30 mg PO BEDTIME 05/07/23 06/15/23 06/15/23 History tablet,extended release 24 hr ibuprofen 800 mg tablet 800 mg PO Q8H 06/11/23 06/15/23 Unknown History montelukast 10 mg tablet 10 mg PO DAILY 06/11/23 06/15/23 06/15/23 History (Singulair) Allergies Allergy/AdvReac Type Severity Reaction Status Date / Time No Known Allergies Allergy Verified 06/15/23 09:31 [facility] Anesthesia Medical History Aftercare following surgery of the genitourinary system Depression Diabetes GERD (gastroesophageal reflux disease) Seasonal allergies Surgical History H/O unilateral oophorectomy 01/21/2022- exploratory laparotomy, right oophorectomy performed by Dr. Cadena at [facility] History of esophagogastroduodenoscopy (EGD) (02/14/21) History of laparoscopic appendectomy dr. mederos[facility] [place] History of myringotomy History of surgery PT STATES HAD CYST REMOVED OFF RIGHT OVARY WITH HER APPY SURGERY WITH DR. MEDEROS S/P myringotomy with insertion of tube S/P partial hysterectomy Status post laparoscopic cholecystectomy (02/14/21) Family History Father CAD (coronary artery disease) Diabetes Hyperlipidemia Hypertension Bleeding disorder Grandmother Stroke paternal Family/Other Heart disease paternal uncles x6 Denies family history of Colon cancer Ovarian cancer Breast cancer Anesthesia complication Cancer Uterine cancer Thyroid disease Social History Smoking and tobacco status: current every day smoker (pack and a half) Data Anesthesia 06/15/23 09:50 06/15/23 09:50 Short CBC 06/15/23 Range/Units 09:50 WBC 17.0 H (4.0-10.0) 10^3/uL Hgb 14.5 (11.5-15.3) g/dL Hct 45.0 (37.0-47.0) % MCV 91.1 (81-99) fl Plt Count 332 (130-400) 10^3/cmm Neut % (Auto) 72.5 % Neut # (Auto) 12.31 H (1.8-7.7) 10^3/uL Urine 06/15/23 Range/Units 09:30 Urine Color Yellow (Yellow) Urine Appearance Clear (CLEAR) Urine pH 5 (5-7) Ur Specific Dillon 1.010 (1.005-1.030) Urine Protein Neg (Negative) Urine Glucose (UA) Norm (Normal) Urine Ketones Negative (Negative) Urine Nitrate Negative (Negative) Urine Bilirubin Neg (Negative) Ur Leukocyte Esterase Negative (Negative) Cardiac Studies: Sestamibi Stress Test (Cardiology) 07/18/22
[2023-06-15 10:21] LABS: Alanine Aminotransferase 56 U/L (0-33); Albumin Level 4.3 g/dL (3.5-5.2); Alkaline Phosphatase 96 U/L (35-105); Anion Gap 17.3 (5-19); Aspartate Amino Transferase 42 U/L (0-32); Blood Urea Nitrogen 5 mg/dL (6-20); Carbon Dioxide 24 mmol/L (22-29); Chloride 100 mmol/L (98-107); Globulin 2.4 g/dL (1.3-4.6); Glomerular Filtration Rate 139.6 mL/min (90-130); Glucose 192 mg/dL (65-115); Osmolality Calculated 286 mOsm/kg (285-295); Potassium 4.3 mmol/L (3.5-5.1); Sodium 137 mmol/L (136-145); Total Bilirubin 0.4 mg/dL (0.15-1.2); Total Protein 6.7 g/dL (6.6-8.7)
[2023-06-19] VITALS (12 sets, daily range): BP systolic 135–185; BP diastolic 88–119; PULSE 75–89; RESP 15–22; TEMP 36.1–36.7; O2SAT 93–97
[2023-06-19 09:53] LABS: OR HCG Qualitative Urine Negative (Negative)
[2023-06-19 10:09] LABS: Glucose Point of Care 205 mg/dL (70-110)
--- NOTE | 2023-06-19 10:40 | W.PM.OPSUD ---
Surgery/Procedure H&P Update DATE OF PROCEDURE: June 19, 2023 DATE H&P PERFORMED: 06/11/23 H&P UPDATE INFORMATION: I have reviewed H&P completed within last 30 days, I have examined patient prior to procedure and No changes to prior documentation PREOP DIAGNOSIS: chronic pelvic pain PLANNED PROCEDURE: Operation Date: 06/19/23 11:35 Proposed Procedures p Diagnostic laparoscopy 70078, R10.2(Not Applicable) - Daniel Cadena MD
[2023-06-19] MEDS: scopolamine 1.5 Patch 1 PATCH TRANSDERMA (10:41)
[2023-06-19] MEDS: sodium chloride 0.9% 1,000 ML 30 ML IV (10:41)
[2023-06-19] MEDS: enoxaparin 30 mg/0.3 mL Syringe SUBCUT (10:42)
--- NOTE | 2023-06-19 11:18 | ANES.PAUD2 ---
Pre-Anesthetic Update Pre-Anesthetic Assessment: Date of Surgery/Procedure: 06/19/23 Preop Diagnosis: chronic pelvic pain Proposed Procedure: Operation Date: 06/19/23 11:35 Proposed Procedures p Diagnostic laparoscopy 26075, R10.2(Not Applicable) - Daniel Cadena MD Any changes to Pre-Anesthetic Assessment?: No Labs Last 48hrs: Blood Bank 06/19/23 10:03 Blood Type O Negative Rho(D) Type Negative Antibody Screen Negative Vitals: Temperature 97.6 F 06/19/23 09:51 Temperature Source Temporal Artery S can 06/19/23 09:51 Pulse Rate 79 06/19/23 09:51 Respiratory Rate 17 06/19/23 09:51 Blood Pressure 151/119 06/19/23 09:51 Blood Pressure Gracie n 129 06/19/23 09:51 Pulse Oximetry 97 06/19/23 09:51 Oxygen Delivery Me thod Room Air 06/19/23 10:00 Exam: Pre-Anes Outpt Exam: alert, oriented x 3, clear to auscultation bilaterally and regular rate & rhythm Cardiac Studies: Sestamibi Stress Test (Cardiology) 07/18/22
[2023-06-19] MEDS: ceFAZolin 3,000 MG in sodium chloride 0.9% (100 ml) 100 ML 200 MG IV (14:25)
[2023-06-19] MEDS: BUPivacaine 0.5% INJ 10 mL INJECTION (15:10)
--- NOTE | 2023-06-19 15:17 | P.OP_ITS ---
Operative Report Date of procedure: June 19, 2023 Pre-op diagnosis: Preop Diagnosis chronic pelvic pain Post-op diagnosis: same Procedure done: Diagnostic laparoscopy Surgeon: Daniel Cadena MD Estimated blood loss (mL): 5 IV fluids (mL): 900 Urine output (mL): 25 Procedure: After informed consent, the patient was taken to the operating room where general anesthesia was administered. The patient was examined under anesthesia and found to have a normal uterus with normal adnexa. She was placed in the dorsal lithotomy position and prepped and draped in sterile fashion. Pre- Procedure Time-Out verifying the correct patient identity, correct procedure verified with consent, correct site and side, correct patient position, availability of correct implants and any special equipment or requirements was performed and acknowledge by the OR team. An intraumbilical incision was made with a scalpel. While tenting up on the abdomen, a Verres needle was attempted 3 times without success due to body habitus. An optivue trocar was used to enter cavity under direct visulization with the scope. Pneumoperitoneum was attained with 4 liters of carbon dioxide at proper safe pressure. But safe pressure was not able to sufficiently distend the abdomen for a complete survey due to body habitus. However multiple adhesions in abdomen noted. But complete anatomy survey was not possible due to body habitus and adhesions. To safely manage these adhesions a open laparotomy would be recommended. But the patient also would be advised weight reduction to minimize the risk of complications. Carbon dioxide was allowed to escape from the abdomen. The instruments were removed, and skin cover with a bandage. The instruments were removed from the vagina, and excellent hemostasis was noted. The patient tolerated the procedure well, and sponge, lap and needle count were correct times two. The patient taken to the recovery room in good condition.
[2023-06-19] MEDS: ondansetron 2 mg/ML SDV 2 mL 4 MG IVP (16:06)
--- NOTE | 2023-06-19 16:10 | ANE.PACU2 ---
Inpatient post-anesthesia follow up: Airway intact: Yes Vital signs: Temperature 97.0 F Pulse Rate 80 Respiratory Rate 15 Blood Pressure 175/91 Pulse Oximetry 95 Oxygen Delivery Me thod Nasal Cannula Oxygen Flow Rate 2 Fraction of Inspir ed Oxygen Hydration adequate: Yes Nausea and vomiting: No Pain level: 3 Mental status: Baseline
--- NOTE | 2023-06-19 17:41 | PC.NURSE ---
Rice cath removed per [facility] protocol. 200ml josie urine emptied from rice bag.
== END 2023-06-19 17:31 | disposition home or self-care (01) ==
PROVIDERS: PCP Nurse Practitioner Family; Visit Provider Obstetrics & Gynecology
PROC: (CPT 49320; principal; 2023-06-19 11:25)
DX: R10.2 Pelvic and perineal pain (principal); I10 Essential (primary) hypertension; K21.9 Gastro-esophageal reflux disease without esophagitis; E11.9 Type 2 diabetes mellitus without complications; E66.01 Morbid (severe) obesity due to excess calories; Z68.43 Body mass index [BMI] 50.0-59.9, adult; Z79.84 Long term (current) use of oral hypoglycemic drugs; Z79.899 Other long term (current) drug therapy; F17.210 Nicotine dependence, cigarettes, uncomplicated; Z90.710 Acquired absence of both cervix and uterus; Z90.721 Acquired absence of ovaries, unilateral
CPT/HCPCS: 49320; 36415; 36416; 51702; 80053; 81003; 82962; 84703; 85025; 86850; 86900; J0690; J1100; J1170; J1200; J1650; J2250; J2405; J2704; J2710; J3010; J3490; J7030

== ENCOUNTER 2024-04-02 11:12 | Outpatient (CLI) | payer OTHER, SELFPAY ==
--- NOTE | 2024-04-02 11:28 | XR_ITS ---
WS: [id number] LUMBAR SPINE: 4 VIEWS TECHNIQUE: AP, lateral. HISTORY: Low back pain COMPARISON: 06/16/2021 Mild LEFT rotoscoliosis lumbar spine is progressed since the prior study. Advanced degenerative disc space narrowing at L4-5. Small endplate osteophytes from L3-L5. No fracture. Moderate facet joint arthritis. Mild sclerotic SI joints. Prior cholecystectomy. XR/XR lumbar spine min 4V [id number] IMPRESSION: Mild progression of LEFT rotary scoliosis lumbar spine. Advanced degenerative disc disease at L4-5. Advanced facet joint arthritis thro ughout the lumbar spine.
== END 2024-04-02 11:13 | disposition home or self-care (01) ==
LOC: RAD 11:15
PROVIDERS: PCP Nurse Practitioner Family; Visit Provider Nurse Practitioner Family
DX: M54.50 Low back pain, unspecified (principal); M54.10 Radiculopathy, site unspecified; M41.86 Other forms of scoliosis, lumbar region; M51.36 Other intervertebral disc degeneration, lumbar region; M48.061 Spinal stenosis, lumbar region without neurogenic claudication; M47.816 Spondylosis without myelopathy or radiculopathy, lumbar region; M25.80 Other specified joint disorders, unspecified joint; Z98.890 Other specified postprocedural states
CPT/HCPCS: 72110

== ENCOUNTER 2024-07-30 16:54 | Outpatient (CLI) | payer OTHER, SELFPAY | END 2024-07-30 16:55 | disposition home or self-care (01) | LOC: SLEEP 16:54 | PROVIDERS: PCP Nurse Practitioner Family; Visit Provider Nurse Practitioner Family | DX: G47.33 Obstructive sleep apnea (adult) (pediatric) (principal) | CPT/HCPCS: G0399 ==

== ENCOUNTER 2024-11-25 11:59 | Outpatient (CLI) | payer OTHER, SELFPAY ==
--- NOTE | 2024-11-25 12:05 | XRR_ITS ---
PROCEDURE INFORMATION: Exam: XR Left Hip Exam date and time: 11/25/2024 12:33 PM Age: 39 years old Clinical indication: Hip pain; Bilateral; Additional info: Pain in left hip TECHNIQUE: Imaging protocol: Radiologic exam of the left hip. Views: 1 view hip with pelvis when performed. COMPARISON: CT kidney stone [id number] 12/29/2021 8:41 AM FINDINGS: Bones/joints: No acute fracture. No dislocation. Normal bone mineralization. No joint effusion. Joint spaces are maintained. Soft tissues: No soft tissue swelling or soft tissue emphysema. No radiopaque foreign body. Vasculature: Multiple calcifications in the pelvis most likely representing calcified phleboliths. XR/XR hip LT 1V wo/w pel [id number] IMPRESSION: 1. No acute fracture of the left hip. CT scan or MRI would be recommended if clinical concern for fracture persists. 2. Incidental/nonacute findings are listed in the report.
--- NOTE | 2024-11-25 12:09 | XRR_ITS ---
PROCEDURE INFORMATION: Exam: XR Right Hip Exam date and time: 11/25/2024 12:33 PM Age: 39 years old Clinical indication: Hip pain; Bilateral; Additional info: Pain in right hip TECHNIQUE: Imaging protocol: Radiologic exam of the right hip. Views: 1 view hip with pelvis when performed. COMPARISON: CT kidney stone [id number] 12/29/2021 8:41 AM FINDINGS: Bones/joints: No acute fracture. No dislocation. Normal bone mineralization. No joint effusion. Joint spaces are maintained. Soft tissues: No soft tissue swelling or soft tissue emphysema. No radiopaque foreign body. Vasculature: Multiple calcifications in the pelvis most likely representing calcified phleboliths. XR/XR hip RT 1V wo/w pel [id number] IMPRESSION: No acute fracture of the right hip. CT scan or MRI would be recommended if clinical concern for fracture persists.
== END 2024-11-25 12:00 | disposition home or self-care (01) ==
LOC: RAD 12:01
PROVIDERS: PCP Nurse Practitioner Family; Visit Provider Student in an Organized Health Care Education/Training Program
DX: M25.552 Pain in left hip (principal); M25.551 Pain in right hip; R93.7 Abnormal findings on diagnostic imaging of other parts of musculoskeletal system
CPT/HCPCS: 73501

== ENCOUNTER 2024-11-26 10:20 | Outpatient (RCR) | payer OTHER, SELFPAY | END 2024-12-05 23:59 | disposition home or self-care (01) | LOC: SPT 10:20 | PROVIDERS: PCP Nurse Practitioner Family; Visit Provider Student in an Organized Health Care Education/Training Program | DX: G89.4 Chronic pain syndrome (principal) | CPT/HCPCS: 97110; 97161 ==

== ENCOUNTER 2024-12-06 06:00 | Outpatient (RCR) | payer OTHER, SELFPAY | END 2025-01-02 23:59 | disposition home or self-care (01) | LOC: SPT 06:00 | PROVIDERS: PCP Nurse Practitioner Family; Visit Provider Student in an Organized Health Care Education/Training Program | DX: G89.4 Chronic pain syndrome (principal) | CPT/HCPCS: 97110 ==

== ENCOUNTER 2025-01-03 06:00 | Outpatient (RCR) | payer OTHER, SELFPAY | END 2025-02-02 23:59 | disposition home or self-care (01) | LOC: SPT 06:00 | PROVIDERS: PCP Nurse Practitioner Family; Visit Provider Student in an Organized Health Care Education/Training Program | DX: G89.4 Chronic pain syndrome (principal) | CPT/HCPCS: 97110 ==

== ENCOUNTER 2025-03-05 15:35 | Outpatient (CLI) | payer OTHER, SELFPAY ==
--- NOTE | 2025-03-05 15:39 | MR_ITS ---
WS: [id number] MRI LUMBAR SPINE NONCONTRAST TECHNIQUE: Sagittal T1, T2 and STIR imaging. Axial T1 and T2 imaging. CLINICAL INFORMATION: RADICULOPATHY, LUMBOSACRAL REGION COMPARISON: None. FINDINGS: Mild lumbar curve. No acute compression. Grade 1 anterolisthesis L4 on L5 with disc desiccation. Endplate degenerative changes at this level. Asymmetric disc space narrowing at L4-5 compared to the remaining levels. Chronic spondylolysis/pars defects at L3-L4 and L4-L5 with sclerosis. L1-L2: Mild facet arthropathy. L2-L3: Mild facet arthropathy. Spinal canal and foramen are patent. L3-L4: Mild annular bulging. Mild facet arthropathy. Spinal canal and foramen are patent. L4-L5: Grade 1 anterolisthesis. Disc desiccation with advanced disc space narrowing and endplate degenerative changes. LEFT paracentral disc osteophyte protrusion impinges the LEFT subarticular recess and traversing LEFT L5 nerve root. Moderate facet arthropathy. Mild central canal stenosis. Mild LEFT greater than RIGHT foraminal narrowing. L5-S1: Mild annular bulging. Tiny shallow central protrusion. Mild LEFT foraminal narrowing. Moderate facet arthropathy. Visualized pelvic bony structures: Normal. Paravertebral soft tissues: Normal. MR/MR lumbar spine wo con* [id number] IMPRESSION: 1. Advanced disc space narrowing L4-5 with endplate degenerative changes. 2. LEFT paracentral disc osteophyte protrusion L4-5 impinges the traversing LE FT L5 nerve root in the subarticular recess. Mild central canal stenosis. Mild LEFT greater than RIGHT foraminal narrowing at this level. 3. Chronic degenerative spondylolysis or pars defects at L3-4 and L4-L5 with s clerosis. This is better visualized and also described on the prior CT abdomen/ pelvis 12/29/2021 4. Tiny central protrusion L5-S1. 5. Moderate facet arthropathy L3-L5.
== END 2025-03-05 15:36 | disposition home or self-care (01) ==
PROVIDERS: PCP Nurse Practitioner Family; Visit Provider Student in an Organized Health Care Education/Training Program
DX: M54.17 Radiculopathy, lumbosacral region (principal); M51.369 Other intervertebral disc degeneration, lumbar region without mention of lumbar back pain or lower extremity pain; M25.78 Osteophyte, vertebrae; M51.26 Other intervertebral disc displacement, lumbar region; M47.896 Other spondylosis, lumbar region; M43.8X6 Other specified deforming dorsopathies, lumbar region; M51.379 Other intervertebral disc degeneration, lumbosacral region without mention of lumbar back pain or lower extremity pain; M48.07 Spinal stenosis, lumbosacral region; M47.897 Other spondylosis, lumbosacral region
CPT/HCPCS: 72148

== ENCOUNTER 2025-10-19 20:00 | Outpatient (CLI) | payer BC, SELFPAY | END 2025-10-19 20:01 | disposition home or self-care (01) | LOC: SLEEP 20:00 | PROVIDERS: PCP Nurse Practitioner Family; Referring Provider Nurse Practitioner Family; Visit Provider Internal Medicine Pulmonary Disease | DX: G47.33 Obstructive sleep apnea (adult) (pediatric) (principal) | CPT/HCPCS: 95811 ==